=== PATIENT | female | born 1995 ===

== ENCOUNTER 2017-03-03 15:15 | Emergency (ER) | payer OTHER ==
[2017-03-03 15:18] VITALS: BP 134/67; PULSE 90; RESP 18; TEMP 99.9; O2SAT 100
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
--- NOTE | 2017-03-03 16:12 | RAD ---
PROCEDURE: Right Hand Radiographs. HISTORY: hand injury COMPARISON: None. FINDINGS: BONES: Normal. No fracture. JOINTS: Normal. No osteoarthritic changes. SOFT TISSUES: Normal. OTHER FINDINGS: None. IMPRESSION: No evidence of acute displaced fracture nor dislocation. If symptoms persist or occult fracture suspected clinically recommend repeat radiographs in 5-10 days as most fractures should become radiographically evident this timeframe.
--- NOTE | 2017-03-03 17:34 | RAD ---
PROCEDURE: Right Wrist Radiographs. HISTORY: wrist pain COMPARISON: Correlation made with concurrent radiographs right hand FINDINGS: BONES: Current study reveals no definitive radiographic evidence of acute displaced fracture nor dislocation. Osseous structures intact. JOINTS: Joint spaces preserved. No dislocation. SOFT TISSUES: Soft tissues grossly unremarkable. There are no radiopaque foreign bodies. OTHER FINDINGS: None. IMPRESSION: No definitive radiographic evidence of acute displaced fracture nor dislocation. If symptoms persist or occult fracture suspected clinically recommend repeat radiographs in 5-10 days as most fractures should become radiographically evident in this timeframe.
== END 2017-03-03 16:57 | disposition home or self-care (01) ==
LOC: H.ER 15:15
DX: S69.91XA Unspecified injury of right wrist, hand and finger(s), initial encounter (principal); Y04.0XXA Assault by unarmed brawl or fight, initial encounter; Y92.89 Other specified places as the place of occurrence of the external cause

== ENCOUNTER 2017-08-15 10:21 | Emergency (ER) | payer OTHER ==
[2017-08-15 10:24] VITALS: BMI 32.3
--- NOTE | 2017-08-15 11:36 | ED PDOC ---
HPI: Abdomen Time Seen by Provider: 08/15/17 10:25 Chief Complaint (Nursing): Abdominal Pain Chief Complaint (Provider): Abdominal Pain History Per: Patient History/Exam Limitations: no limitations Additional Complaint(s): Raquel is a 22 y/o female with no past medical problems who presents to the ED complaining of abdominal pain in midepigastric area. Patient admits to vomiting yesterday which she describes as being acidic. 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 - Surgical History Surgical History: No Surg Hx - Family History Family History: States: Unknown Family Hx - Home Medications Home Medications: Ambulatory Orders Medication Instructions Recorded Ibuprofen [Motrin] 600 mg PO Q6H PRN #20 tab 06/28/16 Naproxen [Naprosyn Tab] 375 mg PO Q8 PRN #21 tab 03/03/17 Albuterol HFA [Ventolin HFA 90 2 puff IH [id number] PRN #60 puff 07/03/17 mcg/actuation (8 g)] Azithromycin [Zithromax] 250 mg PO DAILY #6 tab 07/03/17 Benzonatate [Tessalon Perle] 100 mg PO Q8 PRN #30 capsule 07/03/17 Famotidine [Pepcid] 20 mg PO BID PRN #10 tab 08/15/17 - Allergies Allergies/Adverse Reactions: Allergies Allergy/AdvReac Type Severity Reaction Status Date / Time No Known Allergies Allergy Verified 05/13/16 16:27 Review of Systems ROS Statement: Except As Marked, All Systems Reviewed And Found Negative Gastrointestinal: Positive for: Vomiting, Abdominal Pain Physical Exam - Reviewed Nursing Documentation Reviewed: Yes Vital Signs Reviewed: Yes - Physical Exam Appears: Positive for: Non-toxic, No Acute Distress Skin: Positive for: Normal Color, Warm, Dry Eye Exam: Positive for: Normal appearance Neck: Positive for: Normal Cardiovascular/Chest: Positive for: Regular Rate, Rhythm Respiratory: Positive for: Normal Breath Sounds. Negative for: Respiratory Distress Gastrointestinal/Abdominal: Positive for: Normal Exam, Bowel Sounds, Soft, Tenderness (umbilical) Extremity: Positive for: Normal ROM Neurologic/Psych: Positive for: Alert, Oriented. Negative for: Motor/Sensory Deficits - Laboratory Results Result Diagrams: 08/15/17 11:58 12 11:58 - ECG O2 Sat by Pulse Oximetry: 99 (RA) Pulse Ox Interpretation: Normal Medical Decision Making Medical Decision Making: Time: 11:20 Initial Impression: abdominal pain Initial Plan: --Beta-HCG --CMP --Lipase --CBC --Pepcid --Zofran Time: 2:11 --Labs were reviewed and negative --Patient reports feeling better. nontender abdomen. She is tolerating PO --Patient is stable for discharge home Scribe Attestation: Documented by Naveen Palmer, acting as a scribe for Santhosh Recio MD Provider Scribe Attestation: All medical record entries made by the Scribe were at my direction and personally dictated by me. I have reviewed the chart and agree that the record accurately reflects my personal performance of the history, physical exam, medical decision making, and the department course for this patient. I have also personally directed, reviewed, and agree with the discharge instructions and disposition. Disposition - Clinical Impression Clinical Impression: Gastritis - Patient ED Disposition Is Patient to be Admitted: No - Disposition Referrals: Ludwig Antonio MD [Staff Provider] - Disposition: Routine/Home Disposition Time: 01:11 Condition: IMPROVED Additional Instructions: follow up with your primary doctor in 1-2 days return to the ED with any worsening or concerning symptoms Prescriptions: Famotidine [Pepcid] 20 mg PO BID PRN #10 tab PRN Reason: Heartburn Instructions: Gastritis (ED) Forms: [employer] (Ugandan)
[2017-08-15] MEDS ORDERED: Sodium Chloride 0.9% 1,000 ML IV STA (11:42)
[2017-08-15 12:03] LABS: BASO % 0.2 % (0.0-2.0); EOS # 0.1 K/uL (0.0-0.7); HEMATOCRIT 37.6 % (34.0-47.0); LYMPH # 1.8 K/uL (1.0-4.3); LYMPH % 18.3 % (20.0-40.0); MEAN CELL VOLUME 88.2 fl (81.0-99.0); MEAN CORPUSCULAR HEMOGLOBIN 29.6 pg (27.0-31.0); MEAN CORPUSCULAR HGB CONC 33.5 g/dL (33.0-37.0); MEAN PLATELET VOLUME 10.9 fl (7.2-11.7); MONO # 0.7 K/uL (0.0-0.8); MONO % 7.5 % (0.0-10.0); NEUT # 7.1 K/uL (1.8-7.0); NRBC % 0.2 % (0.0-0.0); RED CELL DISTRIBUTION WIDTH 13.9 % (11.5-14.5); WHITE BLOOD COUNT 9.7 K/uL (4.8-10.8)
[2017-08-15 12:13] LABS: ALB/GLOB RATIO 1.3 (1.0-2.1); ALKALINE PHOSPHATASE 59 U/L (38-126); ALT/SGPT 56 U/L (9-52); AST/SGOT 23 U/L (14-36); BILIRUBIN,TOTAL 0.4 mg/dl (0.2-1.3); BLOOD UREA NITROGEN 12 mg/dl (7-17); CALCIUM 8.1 mg/dL (8.4-10.2); CARBON DIOXIDE 23 mmol/L (22-30); CHLORIDE 105 mmol/L (98-107); GFR AFRICAN-AMERICAN > 60; GLUCOSE,RANDOM 91 mg/dL (65-105); LIPASE 50 U/L (23-300); POTASSIUM 3.5 MMOL/L (3.6-5.0); SODIUM 139 mmol/l (132-148); TOTAL PROTEIN 7.3 G/DL (6.3-8.2)
[2017-08-15 14:42] VITALS: BP 126/78; PULSE 78; RESP 17; TEMP 97; O2SAT 98
== END 2017-08-15 14:42 | disposition home or self-care (01) ==
LOC: H.ER 10:21
DX: K29.70 Gastritis, unspecified, without bleeding (principal)
CPT/HCPCS: 80053; 81025; 83690; 84702; 85025; 96374; 99282; J2405; J7040

== ENCOUNTER 2018-01-30 11:05 | Observation (INO) | payer SELFPAY ==
[2018-01-30 11:06] VITALS: BMI 32.3
--- NOTE | 2018-01-30 11:48 | ED PDOC ---
HPI: Female Pain Time Seen by Provider: 01/30/18 11:46 Chief Complaint (Nursing): Female Genitourinary Chief Complaint (Provider): abd pain History Per: Patient (22 y/o female sent for evaluation from [facility] clinic. Patient states she was diagnosed with PID and sent to ED for evaluation. Patient is approx 6 week gestation and notes moderate crampy pain lower abdominal region. Denies any dysuria.) Past Medical History Reviewed: Historical Data, Nursing Documentation, Vital Signs Vital Signs: Last Vital Signs Temp 98.0 F 01/30/18 11:28 Pulse 83 01/30/18 11:28 Resp 18 01/30/18 11:28 BP 127/74 01/30/18 11:28 Pulse Ox 99 01/30/18 11:28 - Medical History PMH: Migraine (dx 2 years [employer]), Sexually Transmitted Disease Denies: Chronic Kidney Disease, Seizures - Family History Family History: States: Unknown Family Hx - Home Medications Home Medications: Ambulatory Orders Medication Instructions Recorded No Known Home Med 01/30/18 - Allergies Allergies/Adverse Reactions: Allergies Allergy/AdvReac Type Severity Reaction Status Date / Time No Known Allergies Allergy Verified 05/13/16 16:27 Review of Systems ROS Statement: Except As Marked, All Systems Reviewed And Found Negative Physical Exam - Reviewed Nursing Documentation Reviewed: Yes Vital Signs Reviewed: Yes - Physical Exam Appears: Positive for: Well, Non-toxic, No Acute Distress Head Exam: Positive for: ATRAUMATIC, NORMAL INSPECTION, NORMOCEPHALIC Skin: Positive for: Normal Color, Warm, DRY Eye Exam: Positive for: EOMI, Normal appearance, PERRL ENT: Positive for: Normal ENT Inspection Neck: Positive for: Normal, Painless ROM Cardiovascular/Chest: Positive for: Regular Rate, Rhythm Respiratory: Positive for: CNT, Normal Breath Sounds Gastrointestinal/Abdominal: Positive for: Normal Exam, Soft Back: Positive for: Normal Inspection Extremity: Positive for: Normal ROM Neurologic/Psych: Positive for: Alert, Oriented - Laboratory Results Result Diagrams: 01/30/18 12:05 01/30/18 12:05 - ECG O2 Sat by Pulse Oximetry: 99 - Progress ED Course And Treament: IMPRESSION: Small cystic focus in endometrial cavity with no pole or yolk sac visible reflecting early viable IUP versus failure . Likely corpus luteum cyst right ovary 2.8 cm. Alternatively, this may represent a hemorrhagic cyst or endometrioma. Serial beta HCG analysis is advised as well as one-week follow-up transvaginal pelvic ultrasound examination. ZITHROMAX 1 GM PO (WILL REPEAT IN 1 WEEK) CEFITIN 2 GM IV FIST DOSE D/W FAMILY MED RESIDENT Disposition - Clinical Impression Clinical Impression: Abdominal pain affecting , PID (pelvic inflammatory disease) - Patient ED Disposition Is Patient to be Admitted: Yes - Disposition Disposition Time: 13:36 Condition: FAIR
[2018-01-30] MEDS ORDERED: cefOXitin 2 GM in Sodium Chloride 0.9% 100 ML IVPB ONE (12:10)
[2018-01-30 12:19] LABS: BASO # 0.1 K/uL (0.0-0.2); BASO % 0.8 % (0.0-2.0); EOS # 0.1 K/uL (0.0-0.7); HEMOGLOBIN 12.9 g/dL (12.0-16.0); LYMPH # 2.5 K/uL (1.0-4.3); LYMPH % 24.4 % (20.0-40.0); MEAN CELL VOLUME 87.4 fl (81.0-99.0); MEAN CORPUSCULAR HEMOGLOBIN 30.1 pg (27.0-31.0); MEAN CORPUSCULAR HGB CONC 34.5 g/dL (33.0-37.0); MEAN PLATELET VOLUME 10.3 fl (7.2-11.7); MONO # 0.7 K/uL (0.0-0.8); MONO % 6.5 % (0.0-10.0); NEUT # 6.9 K/uL (1.8-7.0); NEUT % 67.3 % (50.0-75.0); NRBC % 0.1 % (0.0-0.0); RBC 4.28 Mil/uL (3.80-5.20); WHITE BLOOD COUNT 10.3 K/uL (4.8-10.8)
[2018-01-30] MEDS ORDERED: Azithromycin 500 MG IV IVPB ONE (12:20)
[2018-01-30 12:24] LABS: SQUAMOUS EPITHIAL 1 /hpf (0-5); URINE BACTERIA RARE (<OCC); URINE BILIRUBIN NEGATIVE (NEGATIVE); URINE BLOOD SMALL (NEGATIVE); URINE CLARITY CLEAR (Clear); URINE COLOR STRAW (YELLOW); URINE GLUCOSE (UA) NEG (Normal); URINE LEUKOCYTE ESTERASE NEG Leu/uL (Negative); URINE PROTEIN NEGATIVE (NEGATIVE); URINE UROBILINOGEN 0.2-1.0 mg/dL (0.2-1.0)
[2018-01-30 12:31] LABS: BLOOD UREA NITROGEN 7 mg/dl (7-17); CALCIUM 8.9 mg/dL (8.4-10.2); GFR AFRICAN-AMERICAN > 60; GFR NON-AFRICAN AMERICAN > 60
--- NOTE | 2018-01-30 13:12 | US ---
HISTORY: abd pain in ; last menstrual appears reported 01/01/2018. COMPARISON: None available. TECHNIQUE: Transvaginal pelvic ultrasound was performed in transverse and in longitudinal projections including color and spectral Doppler analysis. FINDINGS: UTERUS: Uterus is anteverted measuring 7.6 x 5.7 x 4.4 cm with a small anechoic focus within the endometrial cavity at the upper fundus level measuring 0.39 cm. This is a nonspecific pattern may not represent a gestation. This may represent an early IUP less than 5-6 weeks. No pole or yolk sac identified. Decidual reaction appears faint but non-focal. CERVIX: No cervical abnormality identified. RIGHT OVARY: Measures 4.6 x 3.3 x 3.9 cm. Complex corpus luteum cyst 2.8 x 2.8 x 2.2 cm. Alternately, this may represent a the endometrioma or hemorrhagic cyst given its lace-like internal echo. Normal internal blood flow with no evidence to suggest torsion. LEFT OVARY: Measures 3.4 x 2.3 x 2.1 cm. No solid mass. Normal flow. FREE FLUID: No significant free fluid noted. OTHER FINDINGS: None. IMPRESSION: Small cystic focus in endometrial cavity with no pole or yolk sac visible reflecting early viable IUP versus failure . Likely corpus luteum cyst right ovary 2.8 cm. Alternatively, this may represent a hemorrhagic cyst or endometrioma. Serial beta HCG analysis is advised as well as one-week follow-up transvaginal pelvic ultrasound examination.
--- NOTE | 2018-01-30 15:07 | CP.PCM.HP ---
History of Present Illness - History of Present Illness History of Present Illness: 22 year old female with PMHx significant for chlamydia presented to ED via PCP due to suspected PID. Patient states for the last 4 days has been with worsening lower abdominal pain, 7/10, L>R. Patient also states occasionally chills. Patient was seen in office by PCP, noted to have white/creamy discharge with pelvic pain with bimanual exam and tenderness to palpation of lower abdomen. Patient states LMP on December 27 to January 01, usually irregular in duration. Patient states unplanned with boyfriend. Denies vaginal lesions/itchiness. Patient states chlamydia last diagnosed in June 2016 when she had a spontaneous at 16 weeks gestation. Patient denies dysuria, hematuria, polyuria, diarrhea, constipation, brbpr, melena, nausea, vomiting, chest pain, or palpitations. Patient admits to occasionally having palpitations in the past but not recently. PMD: [facility] PMHx: Chlamydia 2015 Allergies: NKDA Meds: None (found out yesterday, did not start PNV) PSHx: None Family Hx: Mother with brain cancer, Father with HTN Social Hx: Smoker, 3/4cigs/month since 20yo, etoh on weekends, last drink 2 weeks ago, denies illicit drus ED course: Stable vitals, afebrile Labs: unremarkable, no leukocytosis, BHCG 1029 TVUS: Small cystic focus in endometrial cavity with no pole or yolk sac visible reflecting early viable IUP versus failure . Likely corpus luteum cyst right ovary 2.8 cm. Alternatively, this may represent a hemorrhagic cyst or endometrioma. Serial beta HCG analysis is advised as well as one-week follow-up transvaginal pelvic ultrasound examination. 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) Hx Seizures: No - RENAL Hx Chronic Kidney Disease: No - ENDOCRINE/METABOLIC Hx Endocrine Disorders: No - HEMATOLOGICAL/ONCOLOGICAL Hx Blood Disorders: No - MUSCULOSKELETAL/RHEUMATOLOGICAL Hx Musculoskeletal Disorders: No - GASTROINTESTINAL Hx Gastrointestinal Disorders: Yes (fatty liver) - GENITOURINARY/GYNECOLOGICAL Hx Sexually Transmitted Disorders: Yes - PSYCHIATRIC Hx Psychophysiologic Disorder: No Hx Substance Use: No - SURGICAL HISTORY Hx Surgeries: No - ANESTHESIA Hx Anesthesia: No Meds Allergies/Adverse Reactions: Allergies Allergy/AdvReac Type Severity Reaction Status Date / Time No Known Allergies Allergy Verified 05/13/16 16:27 Physical Exam - Constitutional Appears: Well, Non-toxic, No Acute Distress - Head Exam Head Exam: ATRAUMATIC, NORMAL INSPECTION, NORMOCEPHALIC - Eye Exam Eye Exam: Normal appearance - Neck Exam Neck exam: Positive for: Normal Inspection. Negative for: Lymphadenopathy - Respiratory Exam Respiratory Exam: Clear to Auscultation Bilateral, NORMAL BREATHING PATTERN. absent: Rales, Rhonchi, Wheezes - Cardiovascular Exam Cardiovascular Exam: REGULAR RHYTHM, RRR, +S1, +S2, Systolic Murmur - GI/Abdominal Exam GI & Abdominal Exam: Normal Bowel Sounds, Soft, Tenderness (lower abdomen, L > R ) - Exam External exam: NORMAL EXTERNAL EXAM. absent: Lesions Speculum exam: Vaginal Discharge (scant brown/white). absent: Cervical Discharge, Erythema, Vaginal Bleeding Bimanual exam: Adnexal (tenderness, left), Cervical Motion Tendernes (mild) - Extremities Exam Extremities exam: Positive for: normal inspection. Negative for: calf tenderness, pedal edema - Back Exam Back exam: NORMAL INSPECTION - Neurological Exam Neurological exam: Alert, Oriented x3 - Psychiatric Exam Psychiatric exam: Normal Affect, Normal Mood - Skin Skin Exam: Dry, Intact, Normal Color, Warm Results - Vital Signs Recent Vital Signs: Last Vital Signs Temp 98.0 F 01/30/18 11:28 Pulse 83 01/30/18 11:28 Resp 18 01/30/18 11:28 BP 127/74 01/30/18 11:28 Pulse Ox 99 01/30/18 13:55 - Labs Result Diagrams: 01/30/18 12:05 01/30/18 12:05 Labs: Laboratory Results - last 24 hr 01/30/18 01/30/18 01/30/18 11:56 12:05 12:05 WBC 10.3 RBC 4.28 Hgb 12.9 Hct 37.4 MCV 87.4 MCH 30.1 MCHC 34.5 RDW 13.0 Plt Count 183 MPV 10.3 Neut % (Auto) 67.3 Lymph % (Auto) 24.4 [place] % (Auto) 6.5 Eos % (Auto) 1.0 Baso % (Auto) 0.8 Neut # (Auto) 6.9 Lymph # (Auto) 2.5 [place] # (Auto) 0.7 Eos # (Auto) 0.1 Baso # (Auto) 0.1 Sodium 138 Potassium 3.8 Chloride 105 Carbon Dioxide 25 Anion Gap 12 BUN 7 Creatinine 0.3 L Est GFR ( Amer) > 60 Est GFR (Non-Af Amer) > 60 Random Glucose 98 Calcium 8.9 Beta HCG, Quant Urine Color Straw Urine Clarity Clear Urine pH 6.0 Ur Specific [place] 1.011 Urine Protein Negative Urine Glucose (UA) Neg Urine Ketones Negative Urine Blood Small Urine Nitrate Negative Urine Bilirubin Negative Urine Urobilinogen 0.2-1.0 Ur Leukocyte Esterase Neg Urine RBC (Auto) 1 Urine Microscopic WBC < 1 Ur Squamous Epith Cells 1 Urine Bacteria Rare 01/30/18 12:05 WBC RBC Hgb Hct MCV MCH MCHC RDW Plt Count MPV Neut % (Auto) Lymph % (Auto) [place] % (Auto) Eos % (Auto) Baso % (Auto) Neut # (Auto) Lymph # (Auto) [place] # (Auto) Eos # (Auto) Baso # (Auto) Sodium Potassium Chloride Carbon Dioxide Anion Gap BUN Creatinine Est GFR ( Amer) Est GFR (Non-Af Amer) Random Glucose Calcium Beta HCG, Quant 1029.60 Urine Color Urine Clarity Urine pH Ur Specific [place] Urine Protein Urine Glucose (UA) Urine Ketones Urine Blood Urine Nitrate Urine Bilirubin Urine Urobilinogen Ur Leukocyte Esterase Urine RBC (Auto) Urine Microscopic WBC Ur Squamous Epith Cells Urine Bacteria Assessment & Plan (1) Abdominal pain in Status: Acute (2) Murmur Status: Acute (3) DVT prophylaxis Status: Acute - Assessment and Plan (Free Text) Assessment: 22 year old female with PMHx significant for chlamydia with pelvic pain, chills admitted for possible PID in . GA: 4wks 6days Plan: (1) Abdominal pain in - LMP 12/27/17 - suspected PID? - Cefoxitin 2g q12h - Azithromycin 1000mg x1 in ED, 1 dose in 1 week. - TVUS: Small cystic focus in endometrial cavity with no pole or yolk sac visible reflecting early viable IUP versus failure . Likely corpus luteum cyst right ovary 2.8 cm. Alternatively, this may represent a hemorrhagic cyst or endometrioma. Serial beta HCG analysis is advised as well as one-week follow-up transvaginal pelvic ultrasound examination. - OBGYN consulted, appreciate recommendations - PNV daily - Tylenol PRN for pain - Labs in AM (2) Murmur - Patient states she thinks she has had it before but no follow up - palpitations occasionally, not recently, no other cardiac symptoms at this time - Will obtain Echo to further evaluate (3) DVT prophylaxis - SCDs/ambulation - Date & Time Date: 01/30/18 Time: 16:28
--- NOTE | 2018-01-30 19:28 | CP.PCM.CON ---
History of Present Illness - History of Present Illness History of Present Illness: 22 yo with PMH chlamydia admitted for suspected PID in ; pt has positive test at home. Complains of lower abdominal pain x 4 days , 7/, L>R. Was sent from office where she was described to have pelvic pain with bimanual exam and tenderness to palpation of lower abdomen and scant whitish discharge. In ED, afebrile, stable vital signs, no leukocytosis bHC Transvaginal ultrasound: Small anechoic focus with endometrial cavity at the upper fundus level measuring 0.39 cm. This is a nonspecific pattern, may not represent gestation. This may represent an early IUP less than 5-6 weeks vs failure . No pole or yolk sac identified. Likely corpus luteum cyst right ovary 2.8 cm. Alternatively may be hemorrhagic cyst or endometrioma. In ED received 2gm Cefoxitin x 1, 1g Azithromycin x 1; currently receiving cefoxitin 2gm IVPB Q12 OBGYNhx: Menstruation: 15/irregular/5 days, LMP - had SAB at 16 weeks in 2016 STI: chlamydia in 2016, treated, neg in 2017 Sexually active with one male partner ROS: as per HPI, otherwise negative Review of Systems - Review of Systems All systems: reviewed and no additional remarkable complaints except - Gastrointestinal Gastrointestinal: Abdominal Pain Past Patient History - Past Social History Smoking Status: Current Some Days Smoker Alcohol: Occasional Drugs: Denies - CARDIAC Hx Cardiac Disorders: No - PULMONARY Hx Respiratory Disorders: No - NEUROLOGICAL Hx Migraine: Yes Hx Seizures: No - HEENT Hx HEENT Problems: No - RENAL Hx Chronic Kidney Disease: No - ENDOCRINE/METABOLIC Hx Endocrine Disorders: No - HEMATOLOGICAL/ONCOLOGICAL Hx Blood Disorders: No - INTEGUMENTARY Hx Dermatological Problems: No - MUSCULOSKELETAL/RHEUMATOLOGICAL Hx Musculoskeletal Disorders: No - GASTROINTESTINAL Hx Gastrointestinal Disorders: Yes (fatty liver) - GENITOURINARY/GYNECOLOGICAL Hx Sexually Transmitted Disorders: Yes (chlamydia) - PSYCHIATRIC Hx Psychophysiologic Disorder: No Hx Substance Use: No - SURGICAL HISTORY Hx Surgeries: No - ANESTHESIA Hx Anesthesia: No Meds Allergies/Adverse Reactions: Allergies Allergy/AdvReac Type Severity Reaction Status Date / Time No Known Allergies Allergy Verified 05/13/16 16:27 - Medications Medications: Current Medications Acetaminophen (Tylenol 325mg Tab) 650 mg PO Q6 PRN PRN Reason: Pain, moderate (4-7) Cefoxitin Sodium 2 gm/ Sodium (Chloride) 100 mls @ 100 mls/hr IVPB Q12 JAMAL PRN Reason: Protocol Multivit/Folic Acid/Iron () 1 tab PO DAILY JAMAL Physical Exam - Constitutional Appears: Non-toxic - Head Exam Head Exam: NORMAL INSPECTION - Eye Exam Eye Exam: Normal appearance - ENT Exam ENT Exam: Mucous Membranes Moist - Respiratory Exam Respiratory Exam: Clear to Auscultation Bilateral, NORMAL BREATHING PATTERN - Cardiovascular Exam Cardiovascular Exam: REGULAR RHYTHM - GI/Abdominal Exam GI & Abdominal Exam: Normal Bowel Sounds Additional comments: mild-minimal abdominal tenderness - Extremities Exam Extremities exam: Positive for: normal inspection - Neurological Exam Neurological exam: Oriented x3 Results - Vital Signs Recent Vital Signs: Last Vital Signs Temp 98.3 F 01/30/18 16:25 Pulse 82 01/30/18 16:25 Resp 17 01/30/18 16:26 BP 114/68 01/30/18 16:25 Pulse Ox 97 01/30/18 16:25 - Labs Result Diagrams: 01/30/18 12:05 01/30/18 12:05 Labs: Laboratory Results - last 24 hr 01/30/18 01/30/18 01/30/18 11:56 12:05 12:05 WBC 10.3 RBC 4.28 Hgb 12.9 Hct 37.4 MCV 87.4 MCH 30.1 MCHC 34.5 RDW 13.0 Plt Count 183 MPV 10.3 Neut % (Auto) 67.3 Lymph % (Auto) 24.4 [place] % (Auto) 6.5 Eos % (Auto) 1.0 Baso % (Auto) 0.8 Neut # (Auto) 6.9 Lymph # (Auto) 2.5 [place] # (Auto) 0.7 Eos # (Auto) 0.1 Baso # (Auto) 0.1 Sodium 138 Potassium 3.8 Chloride 105 Carbon Dioxide 25 Anion Gap 12 BUN 7 Creatinine 0.3 L Est GFR ( Amer) > 60 Est GFR (Non-Af Amer) > 60 Random Glucose 98 Calcium 8.9 Beta HCG, Quant Urine Color Straw Urine Clarity Clear Urine pH 6.0 Ur Specific [place] 1.011 Urine Protein Negative Urine Glucose (UA) Neg Urine Ketones Negative Urine Blood Small Urine Nitrate Negative Urine Bilirubin Negative Urine Urobilinogen 0.2-1.0 Ur Leukocyte Esterase Neg Urine RBC (Auto) 1 Urine Microscopic WBC < 1 Ur Squamous Epith Cells 1 Urine Bacteria Rare 01/30/18 12:05 WBC RBC Hgb Hct MCV MCH MCHC RDW Plt Count MPV Neut % (Auto) Lymph % (Auto) [place] % (Auto) Eos % (Auto) Baso % (Auto) Neut # (Auto) Lymph # (Auto) [place] # (Auto) Eos # (Auto) Baso # (Auto) Sodium Potassium Chloride Carbon Dioxide Anion Gap BUN Creatinine Est GFR ( Amer) Est GFR (Non-Af Amer) Random Glucose Calcium Beta HCG, Quant 1029.60 Urine Color Urine Clarity Urine pH Ur Specific [place] Urine Protein Urine Glucose (UA) Urine Ketones Urine Blood Urine Nitrate Urine Bilirubin Urine Urobilinogen Ur Leukocyte Esterase Urine RBC (Auto) Urine Microscopic WBC Ur Squamous Epith Cells Urine Bacteria Assessment & Plan - Assessment and Plan (Free Text) Assessment: Assessment: 22 yo female , hx chamydia in 2016, positive test with nonspecific pattern that may represent early IUP, admitted for possible PID in . Plan: Continue current abx management Recommend 48 hour repeat u/s and CG Pt discussed w/ Dr. Ferrari.
[2018-01-30] MEDS: cefOXitin 2 GM in Sodium Chloride 0.9% 100 ML IVPB SCH ×2 (22:00→22:30)
[2018-01-30] MEDS: Prenatal Multivit/Folic Acid/Iron Tab PO SCH (22:28)
[2018-01-31 06:58] LABS: HEMOGLOBIN 12.7 g/dL (12.0-16.0); MEAN CELL VOLUME 88.4 fl (81.0-99.0); MEAN CORPUSCULAR HEMOGLOBIN 29.6 pg (27.0-31.0); MEAN CORPUSCULAR HGB CONC 33.5 g/dL (33.0-37.0); RBC 4.3 Mil/uL (3.80-5.20); RED CELL DISTRIBUTION WIDTH 13.5 % (11.5-14.5)
[2018-01-31 07:14] LABS: ALB/GLOB RATIO 1.2 (1.0-2.1); ALBUMIN 3.8 g/dL (3.5-5.0); ALT/SGPT 49 U/L (9-52); AST/SGOT 31 U/L (14-36); BLOOD UREA NITROGEN 9 mg/dl (7-17); CALCIUM 8.9 mg/dL (8.4-10.2); GFR AFRICAN-AMERICAN > 60; GFR NON-AFRICAN AMERICAN > 60; HDL CHOLESTEROL 33 MG/DL (30-70)
[2018-01-31 07:16] LABS: LDL CHOLESTEROL 76 mg/dL (0-129)
[2018-01-31] MEDS: Prenatal Multivit/Folic Acid/Iron Tab PO SCH (09:11)
[2018-01-31] MEDS: cefOXitin 2 GM in Sodium Chloride 0.9% 100 ML IVPB SCH ×2 (09:11→22:00)
--- NOTE | 2018-01-31 10:22 | CP.PCM.PN ---
Subjective - Date & Time of Evaluation Date of Evaluation: 01/31/18 Time of Evaluation: 10:20 - Subjective Subjective: Pt reports that her abdominal pain is getting better. Pt is tolerating regular diet. Objective - Vital Signs/Intake and Output Vital Signs (last 24 hours): Temp Pulse Resp BP Pulse Ox 98.2 F 75 18 103/64 98 01/31/18 07:47 01/31/18 07:47 01/31/18 07:47 01/31/18 07:47 01/31/18 07:47 - Medications Medications: Current Medications Acetaminophen (Tylenol 325mg Tab) 650 mg PO Q6 PRN PRN Reason: Pain, moderate (4-7) Cefoxitin Sodium 2 gm/ Sodium (Chloride) 100 mls @ 100 mls/hr IVPB Q12 JAMAL PRN Reason: Protocol Last Admin: 01/31/18 09:11 Dose: 100 mls/hr Multivit/Folic Acid/Iron () 1 tab PO DAILY JAMAL Last Admin: 01/31/18 09:11 Dose: 1 tab - Labs Labs: 01/31/18 06:30 01/31/18 06:30 - Constitutional Appears: Well, Non-toxic - GI/Abdominal Exam GI & Abdominal Exam: Soft Additional comments: Nontender - Extremities Exam Additional comments: Nontender - Psychiatric Exam Psychiatric exam: Normal Affect, Normal Mood Assessment and Plan - Assessment and Plan (Free Text) Assessment: 22 yo w/ PMH chlamydia w/ SAB at 16 weeks admitted w/ abdominal pain, possible PID w/ early 01/30/2018 u/s: small cystic focus in endometrial cavity w/ no FP or YS visible reflecting early viable IUP vs failure 01/30/2018 HCG 1029 Rec f/u HCG and u/s in 48 hours Pt received azithromycin 1 gram PO and is currently on IV cefoxitin q [address] Zamarripa, mac artist who explained to me that she has severe aortic regurgitation by echo He is recommending that she be seen by mac artist prior to discharge home He also recommends that she f/u in cardiology clinic after discharge home
--- NOTE | 2018-01-31 11:09 | CP.PCM.PN ---
Subjective - Date & Time of Evaluation Date of Evaluation: 01/31/18 Time of Evaluation: 11:09 - Subjective Subjective: No acute overnight events. Pt is seen and examined by bedside this AM. Pt was seen sitting up and eating breakfast. Denies pain and discharge this AM. Of note, pt states that she was told she had a murmur a few years ago, does remember if any workup was done. Additionally, pt states that she was seen in women's health clinic 1 week ago for vaginal discharge. She was given vaginal cream to be applied at home. Denies abdominal pain, n/v/d/c, chills and fever. Objective - Vital Signs/Intake and Output Vital Signs (last 24 hours): Temp Pulse Resp BP Pulse Ox 98.2 F 75 18 103/64 98 01/31/18 07:47 01/31/18 07:47 01/31/18 07:47 01/31/18 07:47 01/31/18 07:47 - Medications Medications: Current Medications Acetaminophen (Tylenol 325mg Tab) 650 mg PO Q6 PRN PRN Reason: Pain, moderate (4-7) Cefoxitin Sodium 2 gm/ Sodium (Chloride) 100 mls @ 100 mls/hr IVPB Q12 JAMAL PRN Reason: Protocol Last Admin: 01/31/18 09:11 Dose: 100 mls/hr Multivit/Folic Acid/Iron () 1 tab PO DAILY [facility] Last Admin: 01/31/18 09:11 Dose: 1 tab - Labs Labs: 01/31/18 06:30 01/31/18 06:30 - Constitutional Appears: No Acute Distress - Head Exam Head Exam: ATRAUMATIC, NORMOCEPHALIC - Eye Exam Eye Exam: EOMI, Normal appearance - Respiratory Exam Respiratory Exam: Clear to Ausculation Bilateral, NORMAL BREATHING PATTERN. absent: Wheezes - Cardiovascular Exam Cardiovascular Exam: REGULAR RHYTHM, +S2, Murmur (systolic, loudest in the aortic area) - GI/Abdominal Exam GI & Abdominal Exam: Soft, Normal Bowel Sounds. absent: Tenderness - Extremities Exam Extremities Exam: Full ROM. absent: Calf Tenderness, Pedal Edema - Back Exam Back Exam: NORMAL INSPECTION. absent: CVA tenderness (L), CVA tenderness (R) - Neurological Exam Neurological Exam: Alert, Awake, Oriented x3 - Psychiatric Exam Psychiatric exam: Normal Affect, Normal Mood - Skin Skin Exam: Dry, Intact, Normal Color, Warm Assessment and Plan - Assessment and Plan (Free Text) Assessment: Assessment/Plan: 22 year old (GA 4+wks per LMP) female with PMHx of chlamydia with pelvic pain (2016, treated) admitted for possible PID in , IV abx and workup for heart murmur. Abdominal pain in - PID unlikely, but cannot r/o. Pending blood work and cultures - LMP 12/27/17 - C/W Cefoxitin 2g q12h D2 - Azithromycin 1000mg x1 in ED, 1 dose in 1 week. - TVUS: Small cystic focus in endometrial cavity with no pole or yolk sac visible reflecting early viable IUP versus failure . Likely corpus luteum cyst right ovary 2.8 cm. Alternatively, this may represent a hemorrhagic cyst or endometrioma. Serial beta HCG analysis is advised as well as one-week follow-up transvaginal pelvic ultrasound examination. - OBGYN consulted, appreciate recommendations; Repeat BHCG and U/S in 48 hrs - PNV daily - Tylenol PRN for pain - Labs in AM Murmur - Patient states she thinks she has had it before but does not remember if she had a follow up - palpitations occasionally, not recently, no other cardiac symptoms at this time - Echo appreciated; per [employer] Dr. Del Cid, pt has severe aortic regurg as noted in Echo. Cardiology consult recommended - Cardiology consulted Leukocytosis -of unknown origin, WBC 13 -pt remains afebrile, VS stable -cultures pending, urine culture no growth far. Follow up -monitor vitals DVT prophylaxis - SCDs/ambulation
--- NOTE | 2018-01-31 17:25 | CP.PCM.CON ---
History of Present Illness - History of Present Illness History of Present Illness: CONSULTED FOR SEVERE AR NOTED ON ECHO. PT IS CURRENTLY . THIS IS SECOND , FIRST ENDED IN MISCARRIAGE AT 20 WEEKS. PT WAS TOLD SHE HAD AR DURING 1ST , SHE DID NOT FOLLOWUP FOR EVAL AFTER MISCARRIAGE. DENIES SOB, CP, LH, DIZZINESS, PND, LIAM, ORTHOPNEA. PT DENIES FAM HX OF VALVE DISEASE, DENIES FAM HX OF SCD. Review of Systems - Constitutional Constitutional: As Per HPI. absent: Anorexia, Chills, Daytime Sleepiness, Excessive Sweating, Fatigue, Fever, Frequent Falls, Headache, Increased Appetite , Lethargy, Malaise, Night Sweats, Snoring, Sleep Apnea, Weight Gain, Weight Loss, Weakness, Other - EENT Eyes: As Per HPI. absent: Blind Spots, Blurred Vision, Change in Vision, Decreased Night Vision, Diplopia, Discharge, Dry Eye, Exophthalmos, Floaters, Irritation, Itchy Eyes, Loss of Peripheral Vision, Pain, Photophobia, Requires Corrective Lenses, Sees Flashes, Spots in Vision, Tunnel Vision, Other Visual Disturbances, Loss of Vision, Other Ears: As Per HPI. absent: Decreased Hearing, Ear Discharge, Ear Pain, Tinnitus , Abnormal Hearing, Disequilibrium, Dizziness, Other Nose/Mouth/Throat: As Per HPI. absent: Epistaxis, Nasal Congestion, Nasal Discharge, Nasal Obstruction, Nasal Trauma, Nose Pain, Post Nasal Drip, Sinus Pain, Sinus Pressure, Bleeding Gums, Change in Voice, Dental Pain, Dry Mouth, Dysphagia, Halitosis, Hoarsness, Lip Swelling, Mouth Lesions, Mouth Pain, Odynophagia, Sore Throat, Throat Swelling, Tongue Swelling, Facial Pain, Neck Pain, Neck Mass, Other - Breasts Breasts: As Per HPI. absent: Change in Shape, Mass, Pain, Nipple Discharge, Nipple Inversion, Skin Changes, Swelling, Other - Cardiovascular Cardiovascular: As Per HPI. absent: Acrocyanosis, Chest Pain, Chest Pain at Rest, Chest Pain with Activity, Claudication, Diaphoresis, Dyspnea, Dyspnea on Exertion, Edema, Irregular Heart Rhythm, Pain Radiating to Arm/Neck/Jaw, Leg Edema, Leg Ulcers, Lightheadedness, Orthopnea, Palpitations, Paroxysmal Nocturnal Dyspnea, Pedal Edema, Radiating Pain, Rapid Heart Rate, Slow Heart Rate, Syncope, Other - Respiratory Respiratory: As Per HPI. absent: Cough, Dyspnea, Hemoptysis, Dyspnea on Exertion, Wheezing, Snoring, Stridor, Pain on Inspiration, Chest Congestion, Excessive Mucous Production, Change in Mucous Color, Pain with Coughing, Other - Gastrointestinal Gastrointestinal: As Per HPI. absent: Abdominal Pain, Belching, Bloating, Change in Bowel Habits, Change in Stool Character, Coffee Ground Emesis, Constipation, Cramping, Diarrhea, Dyspepsia, Dysphagia, Early Satiety, Excessive Flatus, Fecal Incontinence, Heartburn, Hematemesis, Hematochezia, Loose Stools, Melena, Nausea, Odynophagia, Temesmus, Vomiting, Other - Genitourinary Genitourinary: As Per HPI. absent: Change in Urinary Stream, Difficulty Urinating, Dysuria, Flank Pain, Hematuria, Pyuria, Nocturia, Urinary Incontinence, Urinary Frequency, Urinary Hesitance, Urinary Urgency, Voiding Freq/Small Amts, Freq UTI, Hx Renal/Bladder Calculi, Hx /Renal Surgery, Bladder Distension, Other - Reproductive: Female Reproductive:Female: As Per HPI. absent: Amenorrhea, Amenorrhea/ Control, Currently Menstual, Cycle <21 Days, Cycle >35 Days, Cycle Variable, Menses 1-7 Days, Menses >/= 8 Days, Menses Variable, Cycle > 4 Weeks Between, No Menses for 6 Months, Heavy Menses, Light Menses, Normal Menses, Spotting Between Cycles , S/P Hysterectomy, Menopausal, Post Menopausal, Premenarche, Abnormal Vaginal Bleeding, Dysmenorrhea, Dyspareunia, Genital Lesions, Genital Pruritis, Pelvic Pain, Prolapse Symptoms, Sexual Dysfunction, Vaginal Discharge, Vaginal Dryness , Vaginal Odor, Vaginal Pruritis, Other - Menstruation Menstruation: As Per HPI. absent: Amenorrhea, Amenorrhea/ Control, Currently Menstual, Cycle <21 Days, Cycle >35 Days, Cycle Variable, Menses 1-7 Days, Menses >/= 8 Days, Menses Variable, Cycle > 4 Weeks Between, No Menses for 6 Months, Heavy Menses, Light Menses, Normal Menses, Spotting Between Cycles , S/P Hysterectomy, Menopausal, Post Menopausal, Premenarche, Abnormal Vaginal Bleeding, Dysmenorrhea, Other - Musculoskeletal Musculoskeletal: As Per HPI. absent: Abnormal Gait, Arthralgias, Atrophy, Back Pain, Deformity, Joint Swelling, Limited Range of Motion, Loss of Height, Muscle Cramps, Muscle Weakness, Myalgias, Neck Pain, Numbness, Radiating Pain into Limb, Stiffness, Tingling, Other - Integumentary Integumentary: As Per HPI. absent: Acne, Alopecia, Bleeding Lesions, Change in Hair, Change in Nails, Change in Pigmentation, Changing Lesions, Dry Skin, Erythema, Furuncle, Hirsutism, Lesions, New Lesions, Non-Healing Lesions, Photosensitivity, Pruritus, Rash, Skin Pain, Skin Ulcer, Sores, Striae, Swelling , Unusual Bruising, Wounds, Jaundice, Other - Neurological Neurological: As Per HPI. absent: Abnormal Gait, Abnormal Hearing, Abnormal Movements, Abnormal Speech, Behavioral Changes, Burning Sensations, Confusion, Convulsions, Disequilibrium, Dizziness, Numbness, Focal Weakness, Frequent Falls , Headaches, Lack of Coordination, Loss of Vision, Memory Loss, Paresthesias, Radicular Pain, Restless Legs, Sensory Deficit, Syncope, Tingling, Tremor, Vertigo, Weakness, Other Visual Disturbances, Other - Psychiatric Psychiatric: As Per HPI. absent: Abnormal Sleep Pattern, Anhedonia, Anxiety, Auditory Hallucinations, Behavioral Changes, Change in Appetite, Change in Libido, Confusion, Depression, Difficulty Concentrating, Hallucinations, Homicidal Ideation, Hopelessness, Irritability, Memory Loss, Mood Swings, Panic Attacks, Paranoia, Suicidal Ideation, Visual Hallucinations, Tactile Hallucinations, Other - Endocrine Endocrine: As Per HPI. absent: Change in Body Appearance, Change in Libido, Cold Intolorance, Deepening of Voice, Excessive Sweating, Fatigue, Flushing, Heat Intolorance, Increase in Ring/Shoe/Hat Size, Palpitations, Polydipsia, Polyphagia, Polyuria, Other - Hematologic/Lymphatic Hematologic: As Per HPI. absent: Easy Bleeding, Easy Bruising, Lymphadenopathy , Other Past Patient History - Infectious Disease Hx of Infectious Diseases: None - Past Social History Smoking Status: Current Some Days Smoker Alcohol: Occasional Drugs: Denies - CARDIAC Hx Cardiac Disorders: No - PULMONARY Hx Respiratory Disorders: No - NEUROLOGICAL Hx Migraine: Yes Hx Seizures: No - HEENT Hx HEENT Problems: No - RENAL Hx Chronic Kidney Disease: No - ENDOCRINE/METABOLIC Hx Endocrine Disorders: No - HEMATOLOGICAL/ONCOLOGICAL Hx Blood Disorders: No - INTEGUMENTARY Hx Dermatological Problems: No - MUSCULOSKELETAL/RHEUMATOLOGICAL Hx Musculoskeletal Disorders: No - GASTROINTESTINAL Hx Gastrointestinal Disorders: Yes (fatty liver) - GENITOURINARY/GYNECOLOGICAL Hx Sexually Transmitted Disorders: Yes (chlamydia) - PSYCHIATRIC Hx Psychophysiologic Disorder: No Hx Substance Use: No - SURGICAL HISTORY Hx Surgeries: No - ANESTHESIA Hx Anesthesia: No Meds Home Medications: Home Medication List Medication Instructions Recorded Confirmed Type Multivit/Folic Acid/I 1 tab PO DAILY tab 02/03/18 Rx [] Allergies/Adverse Reactions: Allergies Allergy/AdvReac Type Severity Reaction Status Date / Time No Known Allergies Allergy Verified 05/13/16 16:27 - Medications Medications: Current Medications Acetaminophen (Tylenol 325mg Tab) 650 mg PO Q6 PRN PRN Reason: Pain, moderate (4-7) Cefoxitin Sodium 2 gm/ Sodium (Chloride) 100 mls @ 100 mls/hr IVPB Q12 JAMAL PRN Reason: Protocol Last Admin: 01/31/18 09:11 Dose: 100 mls/hr Multivit/Folic Acid/Iron () 1 tab PO DAILY [facility] Last Admin: 01/31/18 09:11 Dose: 1 tab Physical Exam - Constitutional Appears: Well - Head Exam Head Exam: ATRAUMATIC, NORMAL INSPECTION, NORMOCEPHALIC - Eye Exam Eye Exam: EOMI, Normal appearance, PERRL Pupil Exam: NORMAL ACCOMODATION, PERRL - ENT Exam ENT Exam: Mucous Membranes Moist, Normal Exam - Neck Exam Neck exam: Positive for: Normal Inspection - Respiratory Exam Respiratory Exam: Clear to Auscultation Bilateral, NORMAL BREATHING PATTERN - Cardiovascular Exam Cardiovascular Exam: Diastolic murmur, REGULAR RHYTHM, +S1, +S2, Systolic Murmur - GI/Abdominal Exam GI & Abdominal Exam: Normal Bowel Sounds, Soft. absent: Tenderness - Rectal Exam Rectal Exam: Deferred - Extremities Exam Extremities exam: Positive for: normal inspection - Back Exam Back exam: NORMAL INSPECTION - Neurological Exam Neurological exam: Alert, CN II-XII Intact, Normal Gait, Oriented x3, Reflexes Normal - Psychiatric Exam Psychiatric exam: Normal Affect, Normal Mood - Skin Skin Exam: Dry, Intact, Normal Color, Warm Results - Vital Signs Recent Vital Signs: Last Vital Signs Temp 98 F 01/31/18 16:20 Pulse 100 H 01/31/18 16:20 Resp 20 01/31/18 16:20 BP 126/75 06/01/18 16:20 Pulse Ox 96 01/31/18 16:20 - Labs Result Diagrams: 02/01/18 06:00 01/31/18 06:30 Labs: Laboratory Results - last 24 hr 01/31/18 01/31/18 01/31/18 06:30 06:30 06:30 WBC 13.0 H RBC 4.30 Hgb 12.7 Hct 38.0 MCV 88.4 MCH 29.6 MCHC 33.5 RDW 13.5 Plt Count 185 Sodium 138 Potassium 3.9 Chloride 105 Carbon Dioxide 24 Anion Gap 13 BUN 9 Creatinine 0.4 L Est GFR ( Amer) > 60 Est GFR (Non-Af Amer) > 60 Random Glucose 95 Hemoglobin A1c 5.3 Calcium 8.9 Total Bilirubin 0.3 AST 31 ALT 49 Alkaline Phosphatase 64 Total Protein 7.1 Albumin 3.8 Globulin 3.3 Albumin/Globulin Ratio 1.2 Triglycerides 117 Cholesterol 136 LDL Cholesterol Direct 76 HDL Cholesterol 33 TSH 3rd Generation 1.50 Assessment & Plan (1) Aortic regurgitation Status: Acute (2) Prior miscarriage with in first trimester, antepartum Status: Acute (3) and not yet delivered in first trimester Status: Acute - Assessment and Plan (Free Text) Plan: PT NEEDS TO HAVE AI EVALUATED AFTER . ETIOLOGY OF AI UNKNOWN, HOWEVER SHOULD CONSIDER EVALUATION FOR SLE. NO FURTHER RECOMMENDATIONS GIVEN CURRENT AND LACK OF SYMPTOMS.
--- NOTE | 2018-01-31 19:45 | CARD ---
APPROVED REPORT EXAM: Two-dimensional and M-mode echocardiogram with Doppler and color Doppler. Other Information Quality : GoodRhythm : NSR INDICATION Murmur 2D DIMENSIONS IVSd0.96 (0.7-1.1cm)Aortic Root (2D)3.15 (2.0-3.7cm) LVDd5.30 (3.9-5.9cm)LVOT Diameter2.68 (1.8-2.4cm) PWd1.03 (0.7-1.1cm)IVSs0.76 (0.8-1.2cm) LVDs5.06 (2.5-4.0cm)FS (%) 4.7 % PWs0.74 (0.8-1.2cm) M-Mode DIMENSIONS Left Atrium (MM)2.81 (2.5-4.0cm)IVSd0.30 (0.7-1.1cm) Aortic Root3.70 (2.2-3.7cm)LVDd5.71 (4.0-5.6cm) Aortic Cusp Exc.2.54 (1.5-2.0cm)PWd0.91 (0.7-1.1cm) IVSs0.99 cmFS (%) 33 % LVDs3.81 (2.0-3.8cm)PWs1.35 cm Aortic Valve AI P 1/2 [id number] Mitral Valve MV E Ippdnedx83.7cm/sMV DECEL [id number] A Yqghznnu22.5cm/s MV [id number]/A ratio1.1MVA (PHT)3.98cm2 TDI Lateral E' Peak V14.91cm/sMedial E' Peak V11.16cm/sE/Lateral E'6.5 E/Medial E'8.7 LEFT VENTRICLE The left ventricle is normal in size. There is normal left ventricular wall thickness. The left ventricular function is normal. The left ventricular ejection fraction is - 60%. There is normal LV segmental wall motion. Transmitral Doppler flow pattern is abnormal. No left ventricle thrombus noted on this study. There is no ventricular septal defect visualized. There is no left ventricular aneurysm. There is no mass noted in the left ventricle. RIGHT VENTRICLE The right ventricle is normal size. There is normal right ventricular wall thickness. The right ventricular systolic function is normal. ATRIA The left atrium is mildly dilated on the 2D study. There is no thrombus suspected in the left atrium. The right atrium size is normal. The interatrial septum is intact with no evidence for an atrial septal defect. AORTIC VALVE The aortic valve is moderately to severely thickened and calcific especially what appears to be the non-coronary cusp. There is severe aortic regurgitation in two jets(a larger superior jet and smaller inferior jet). There is no aortic valvular stenosis. MITRAL VALVE The mitral valve is normal in structure. There is no evidence of mitral valve prolapse. There is no mitral valve stenosis. Mitral regurgitation is trace. TRICUSPID VALVE The tricuspid valve is normal in structure. There is mild tricuspid regurgitation. There is no tricuspid valve prolapse or vegetation. There is no tricuspid valve stenosis. PULMONIC VALVE The pulmonic valve is not well visualized. There is no pulmonic valvular regurgitation. GREAT VESSELS The aortic root is normal in size. The IVC was not well visualized. PERICARDIAL EFFUSION The pericardium appears normal. There is no pleural effusion. <Conclusion> The left ventricle is normal in size and wall thickness. The left ventricular function is normal. The left ventricular ejection fraction is - 60%. The left atrium is mildly dilated on the 2D study. The aortic valve is moderately to severely thickened and calcific especially what appears to be the non-coronary cusp. There is severe aortic regurgitation in two jets(a larger superior jet and smaller inferior jet). The mitral and tricuspid valves are normal. Note: A LAYNE is recommended for further evaluation to assess for a possible aortic valve perforation, a possible vegetation and even possibly an eccentric bicuspid valve. The medical team was informed about this echocardiogram result and formal cardiology evaluation was recommended.
--- NOTE | 2018-02-01 07:35 | CP.PCM.PN ---
<Darwin Nina - Last Filed: 02/01/18 07:40> Subjective - Date & Time of Evaluation Date of Evaluation: 02/01/18 Time of Evaluation: 06:30 - Subjective Subjective: Pt seen and examined at bedside. Denies significant overnight events. Denies abdominal pain, dysuria, vaginal bleed, CP/SOB/N/V/D/C. Pt able to ambulate an tolerate regular diet. Has remained afebrile overnight. Objective - Vital Signs/Intake and Output Vital Signs (last 24 hours): Temp Pulse Resp BP Pulse Ox 98.2 F 87 18 111/64 98 02/01/18 00:48 02/01/18 00:48 02/01/18 00:48 02/01/18 00:48 02/01/18 00:48 - Medications Medications: Current Medications Acetaminophen (Tylenol 325mg Tab) 650 mg PO Q6 PRN PRN Reason: Pain, moderate (4-7) Cefoxitin Sodium 2 gm/ Sodium (Chloride) 100 mls @ 100 mls/hr IVPB Q12 JAMAL PRN Reason: Protocol Last Admin: 01/31/18 22:00 Dose: 100 mls/hr Multivit/Folic Acid/Iron () 1 tab PO DAILY JAMAL Last Admin: 01/31/18 09:11 Dose: 1 tab - Labs Labs: 01/31/18 06:30 01/31/18 06:30 - Constitutional Appears: Well, Non-toxic, No Acute Distress - Head Exam Head Exam: ATRAUMATIC - Eye Exam Eye Exam: EOMI - Neck Exam Neck Exam: Full ROM - Respiratory Exam Respiratory Exam: Clear to Ausculation Bilateral, NORMAL BREATHING PATTERN - Cardiovascular Exam Cardiovascular Exam: REGULAR RHYTHM, +S1, +S2, Murmur - GI/Abdominal Exam GI & Abdominal Exam: Soft, Normal Bowel Sounds. absent: Tenderness - Back Exam Back Exam: absent: CVA tenderness (L), CVA tenderness (R) - Neurological Exam Neurological Exam: Alert, Awake, CN II-XII Intact, Oriented x3 - Psychiatric Exam Psychiatric exam: Normal Affect, Normal Mood - Skin Skin Exam: Dry, Intact, Normal Color, Warm Assessment and Plan - Assessment and Plan (Free Text) Plan: 22 yo F w/ pmhx of chlamydia and SAB at 16 weeks admitted for abdominal pain and possible PID in early IV cefoxitin 2 g q12h vitamins Cardiology: Dr. Macdonald seen and evaluated patient: AI evaluation after 01/30/2018 HCG 1029 f/u HCG and us: Planned for today. f/u GC/C and final bcx Case discussed with OB Attending: Dr. Symone Nina MD Family Medicine PGY1 <Negro Ashby - Last Filed: 02/01/18 18:35> Objective - Vital Signs/Intake and Output Vital Signs (last 24 hours): Temp Pulse Resp BP Pulse Ox 98.6 F 94 H 18 122/78 97 02/01/18 16:29 02/01/18 16:29 02/01/18 16:29 02/01/18 16:29 02/01/18 16:29 - Medications Medications: Current Medications Acetaminophen (Tylenol 325mg Tab) 650 mg PO Q6 PRN PRN Reason: Pain, moderate (4-7) Benzocaine/Menthol (Cepacol Sore Throat) 1 lanie PO Q3 PRN PRN Reason: Sore Throat Cefoxitin Sodium 2 gm/ Sodium (Chloride) 100 mls @ 100 mls/hr IVPB Q12 JAMAL PRN Reason: Protocol Last Admin: 02/01/18 09:36 Dose: 100 mls/hr Multivit/Folic Acid/Iron () 1 tab PO DAILY JAMAL Last Admin: 02/01/18 09:36 Dose: 1 tab - Labs Labs: 02/01/18 06:00 01/31/18 06:30 Attending/Attestation - Attestation I have personally seen and examined this patient.: No I have fully participated in the care of the patient.: Yes I have reviewed all pertinent clinical information, including history, physical exam and plan: Yes
[2018-02-01 08:23] LABS: BASO # 0.1 K/uL (0.0-0.2); BASO % 0.6 % (0.0-2.0); EOS # 0.2 K/uL (0.0-0.7); EOS % 1.5 % (0.0-4.0); HEMOGLOBIN 12.6 g/dL (12.0-16.0); LYMPH # 2.7 K/uL (1.0-4.3); LYMPH % 20.5 % (20.0-40.0); MEAN CELL VOLUME 88.6 fl (81.0-99.0); MEAN CORPUSCULAR HEMOGLOBIN 30.2 pg (27.0-31.0); MEAN PLATELET VOLUME 10.7 fl (7.2-11.7); NEUT % 69.4 % (50.0-75.0); NRBC % 0.2 % (0.0-0.0); RBC 4.19 Mil/uL (3.80-5.20); RED CELL DISTRIBUTION WIDTH 13.5 % (11.5-14.5); WHITE BLOOD COUNT 12.9 K/uL (4.8-10.8)
[2018-02-01] MEDS: Prenatal Multivit/Folic Acid/Iron Tab PO SCH (09:36)
[2018-02-01] MEDS: cefOXitin 2 GM in Sodium Chloride 0.9% 100 ML IVPB SCH ×2 (09:36→21:21)
--- NOTE | 2018-02-01 11:44 | CP.PCM.PN ---
Subjective - Date & Time of Evaluation Date of Evaluation: 02/01/18 Time of Evaluation: 11:41 - Subjective Subjective: No acute overnight events. Pt doing well this AM. States that she has been coughing since last night, non-productive. No longer having any abdominal pain, discharge, n/v/d/c, chills or fevers. Objective - Vital Signs/Intake and Output Vital Signs (last 24 hours): Temp Pulse Resp BP Pulse Ox 97.7 F 89 20 109/65 98 02/01/18 08:53 02/01/18 08:53 02/01/18 08:53 02/01/18 08:53 02/01/18 08:53 - Medications Medications: Current Medications Acetaminophen (Tylenol 325mg Tab) 650 mg PO Q6 PRN PRN Reason: Pain, moderate (4-7) Cefoxitin Sodium 2 gm/ Sodium (Chloride) 100 mls @ 100 mls/hr IVPB Q12 JAMAL PRN Reason: Protocol Last Admin: 02/01/18 09:36 Dose: 100 mls/hr Multivit/Folic Acid/Iron () 1 tab PO DAILY JAMAL Last Admin: 02/01/18 09:36 Dose: 1 tab - Labs Labs: 02/01/18 06:00 01/31/18 06:30 - Constitutional Appears: No Acute Distress - Head Exam Head Exam: ATRAUMATIC, NORMAL INSPECTION - Eye Exam Eye Exam: EOMI, Normal appearance - ENT Exam ENT Exam: Mucous Membranes Moist, Normal Oropharynx - Respiratory Exam Respiratory Exam: Clear to Ausculation Bilateral, NORMAL BREATHING PATTERN. absent: Wheezes - Cardiovascular Exam Cardiovascular Exam: REGULAR RHYTHM, +S1, +S2, Murmur (systolic murmur, loudest in aortic area) - GI/Abdominal Exam GI & Abdominal Exam: Soft, Normal Bowel Sounds. absent: Tenderness - Extremities Exam Extremities Exam: Full ROM, Normal Inspection. absent: Calf Tenderness, Pedal Edema - Back Exam Back Exam: NORMAL INSPECTION. absent: CVA tenderness (L), CVA tenderness (R) - Neurological Exam Neurological Exam: Alert, Awake - Psychiatric Exam Psychiatric exam: Normal Affect, Normal Mood - Skin Skin Exam: Dry, Intact, Normal Color, Warm Assessment and Plan - Assessment and Plan (Free Text) Assessment: Assessment/Plan: 22 year old (GA 4+wks per LMP 12/27/17) female with PMHx of chlamydia with pelvic pain (2016, treated) admitted for possible PID in , IV abx and workup for heart murmur. IV Abx D3 Abdominal pain in - resolved at this time - PID unlikely, but cannot r/o. Pending blood work and cultures - C/W Cefoxitin 2g q12h D3 - s/p Azithromycin 1000mg x1 in ED, 1 dose in 1 week. - TVUS: Small cystic focus in endometrial cavity with no pole or yolk sac visible reflecting early viable IUP versus failure . Likely corpus luteum cyst right ovary 2.8 cm. Alternatively, this may represent a hemorrhagic cyst or endometrioma. Serial beta HCG analysis is advised as well as one-week follow-up transvaginal pelvic ultrasound examination. - OBGYN consulted, appreciate recommendations - repeat BHC up from 1029 on 01/30 - pending transvaginal U/S today - c/w PNV daily - Tylenol PRN for pain Murmur - asymptomatic - hx of murmur in the past, not worked-up in the past - palpitations in the past, no cardiac symptoms at this time - Echo 01/31/18; Aortic valve is moderately to severely thickened and calcified. Severe aortic regurg with two jets. Cardiology consult recommended - Cardiology consulted; Per recs, workup for AI post - will need MFM during Leukocytosis -of unknown origin, WBC 13 -pt remains afebrile, VS stable -blood culture no growth 24 hrs, urine culture no growth final. -monitor vitals DVT prophylaxis - SCDs/ambulation
--- NOTE | 2018-02-01 20:36 | US ---
EXAM: US CLINICAL HISTORY: 22 years old, female; Pain; complicated by abdominal or pelvic pain; Periumbilical; First trimester; Gestational age or lmp: Lmp 10/29/2017; TECHNIQUE: Real-time transabdominal and transvaginal obstetrical ultrasound of the maternal pelvis and a first trimester with image documentation. COMPARISON: US - TRANSVAGINAL 2015-12-26 19:04 FINDINGS: Gestation: Question early intrauterine gestational sac measuring 0.53 cm. No yolk sac or pole clearly visualized at this time. Uterus/cervix: No acute abnormality as visualized. No myometrial mass. Ovaries: Approximately 3 cm complex right ovarian cyst. Bilateral ovarian Doppler flow. Free fluid: No free fluid. IMPRESSION: Question early intrauterine gestational sac measuring 0.53 cm. No yolk sac or pole clearly visualized at this time. Approximately 3 cm complex right ovarian cyst. Correlate clinically. Followup imaging recommended.
[2018-02-01] MEDS: Benzocaine/Menthol (Cepacol) Lozenge PO PRN (23:03)
--- NOTE | 2018-02-02 07:33 | CP.PCM.PN ---
<KayLindsay - Last Filed: 02/02/18 10:22> Subjective - Date & Time of Evaluation Date of Evaluation: 02/02/18 Time of Evaluation: 07:33 - Subjective Subjective: Pt seen and examined at bedside this morning. nO acute overnight events. Denies abdominal pain, dysuria, vaginal bleed, CP/SOB/N/V/D/C. Pt able to ambulate an tolerate regular diet. Has remained afebrile overnight. Objective - Vital Signs/Intake and Output Vital Signs (last 24 hours): Temp Pulse Resp BP Pulse Ox 97.9 F 92 H 18 111/61 98 02/01/18 23:53 02/01/18 23:53 02/01/18 23:53 02/01/18 23:53 02/01/18 23:53 - Medications Medications: Current Medications Acetaminophen (Tylenol 325mg Tab) 650 mg PO Q6 PRN PRN Reason: Pain, moderate (4-7) Benzocaine/Menthol (Cepacol Sore Throat) 1 lanie PO Q3 PRN PRN Reason: Sore Throat Last Admin: 02/01/18 23:03 Dose: 1 lanie Cefoxitin Sodium 2 gm/ Sodium (Chloride) 100 mls @ 100 mls/hr IVPB Q12 JAMAL PRN Reason: Protocol Last Admin: 02/01/18 21:21 Dose: 100 mls/hr Multivit/Folic Acid/Iron () 1 tab PO DAILY JAMAL Last Admin: 02/01/18 09:36 Dose: 1 tab - Labs Labs: 02/01/18 06:00 01/31/18 06:30 - Constitutional Appears: Well, No Acute Distress - Head Exam Head Exam: NORMAL INSPECTION - Respiratory Exam Respiratory Exam: Clear to Ausculation Bilateral, NORMAL BREATHING PATTERN. absent: Wheezes - Cardiovascular Exam Cardiovascular Exam: REGULAR RHYTHM, +S1, +S2 Additional comments: Systolic murmur 3/6 on L sternal border. - GI/Abdominal Exam GI & Abdominal Exam: Soft, Normal Bowel Sounds. absent: Distended, Tenderness - Extremities Exam Extremities Exam: absent: Calf Tenderness - Neurological Exam Neurological Exam: Alert, Awake, CN II-XII Intact, Oriented x3 - Psychiatric Exam Psychiatric exam: Normal Mood - Skin Skin Exam: Dry, Warm Assessment and Plan - Assessment and Plan (Free Text) Assessment: 22 yo F w/ pmhx of chlamydia and SAB at 16 weeks admitted for abdominal pain and possible PID in early . - c/w IV cefoxitin 2 g q12h - vitamins - Cardiology: Dr. Macdonald seen and evaluated patient: AI evaluation after . - HCG 2259 going up from 1029 on admission - Repeat US 02/01/18: Questionable of early , no [place] salc or pole appreciated. Recommends following imaging. - f/u GC/C Case discussed with OB Attending: Dr. Symone Moya PGY1 <Negro Ashby O - Last Filed: 02/02/18 15:32> Objective - Vital Signs/Intake and Output Vital Signs (last 24 hours): Temp Pulse Resp BP Pulse Ox 97.8 F 86 18 114/67 94 L 02/02/18 08:37 02/02/18 08:37 02/02/18 08:37 02/02/18 08:37 02/02/18 08:37 - Medications Medications: Current Medications Acetaminophen (Tylenol 325mg Tab) 650 mg PO Q6 PRN PRN Reason: Pain, moderate (4-7) Benzocaine/Menthol (Cepacol Sore Throat) 1 lanie PO Q3 PRN PRN Reason: Sore Throat Last Admin: 02/02/18 12:57 Dose: 1 lanie Cefoxitin Sodium 2 gm/ Sodium (Chloride) 100 mls @ 100 mls/hr IVPB Q12 JAMAL PRN Reason: Protocol Last Admin: 02/02/18 08:54 Dose: 100 mls/hr Multivit/Folic Acid/Iron () 1 tab PO DAILY JAMAL Last Admin: 02/02/18 08:55 Dose: 1 tab - Labs Labs: 02/01/18 06:00 01/31/18 06:30 Attending/Attestation - Attestation I have personally seen and examined this patient.: No I have fully participated in the care of the patient.: Yes I have reviewed all pertinent clinical information, including history, physical exam and plan: Yes
[2018-02-02] MEDS: cefOXitin 2 GM in Sodium Chloride 0.9% 100 ML IVPB SCH ×2 (08:54→21:44)
[2018-02-02] MEDS: Prenatal Multivit/Folic Acid/Iron Tab PO SCH (08:55)
--- NOTE | 2018-02-02 12:48 | CP.PCM.PN ---
Subjective - Date & Time of Evaluation Date of Evaluation: 02/02/18 Time of Evaluation: 10:40 - Subjective Subjective: Pt seen and examined at bedside this morning. NAEO. Denies abdominal pain, dysuria, vaginal bleed, CP/SOB/N/V/D/C. Pt able to ambulate an tolerate regular diet. VSS Objective - Vital Signs/Intake and Output Vital Signs (last 24 hours): Temp Pulse Resp BP Pulse Ox 97.8 F 86 18 114/67 94 L 02/02/18 08:37 02/02/18 08:37 02/02/18 08:37 02/02/18 08:37 02/02/18 08:37 - Medications Medications: Current Medications Acetaminophen (Tylenol 325mg Tab) 650 mg PO Q6 PRN PRN Reason: Pain, moderate (4-7) Benzocaine/Menthol (Cepacol Sore Throat) 1 lanie PO Q3 PRN PRN Reason: Sore Throat Last Admin: 02/01/18 23:03 Dose: 1 lanie Cefoxitin Sodium 2 gm/ Sodium (Chloride) 100 mls @ 100 mls/hr IVPB Q12 JAMAL PRN Reason: Protocol Last Admin: 02/02/18 08:54 Dose: 100 mls/hr Multivit/Folic Acid/Iron () 1 tab PO DAILY JAMAL Last Admin: 02/02/18 08:55 Dose: 1 tab - Labs Labs: 02/01/18 06:00 01/31/18 06:30 - Constitutional Appears: No Acute Distress - Head Exam Head Exam: ATRAUMATIC - Eye Exam Eye Exam: EOMI Pupil Exam: PERRL - ENT Exam ENT Exam: Mucous Membranes Moist - Neck Exam Neck Exam: Full ROM - Respiratory Exam Respiratory Exam: Clear to Ausculation Bilateral - Cardiovascular Exam Additional comments: Diastolic murmur Grade 2 - GI/Abdominal Exam GI & Abdominal Exam: Soft. absent: Tenderness - Extremities Exam Extremities Exam: Full ROM. absent: Pedal Edema - Neurological Exam Neurological Exam: Alert, Awake, Oriented x3 - Psychiatric Exam Psychiatric exam: Normal Affect, Normal Mood - Skin Skin Exam: Dry, Normal Color, Warm Assessment and Plan - Assessment and Plan (Free Text) Plan: 22 year old (GA 4+wks per LMP 12/27/17) female with PMHx of chlamydia with pelvic pain (2016, treated) admitted for possible PID in , IV abx and workup for heart murmur. IV Abx D3 Abdominal pain in - resolved at this time - PID unlikely, but cannot r/o. Pending blood work and cultures - C/W Cefoxitin 2g q12h D3 - s/p Azithromycin 1000mg x1 in ED, 1 dose in 1 week. - TVUS: Small cystic focus in endometrial cavity with no pole or yolk sac visible reflecting early viable IUP versus failure . Likely corpus luteum cyst right ovary 2.8 cm. Alternatively, this may represent a hemorrhagic cyst or endometrioma. Serial beta HCG analysis is advised as well as one-week follow-up transvaginal pelvic ultrasound examination. - OBGYN consulted, appreciate recommendations - repeat BHC up from 1029 on 01/30 - transvaginal U/S 02/01/19: possible gestational sac visualized - c/w PNV daily - Tylenol PRN for pain Murmur - asymptomatic - hx of murmur in the past, not worked-up in the past - palpitations in the past, no cardiac symptoms at this time - Echo 01/31/18; Aortic valve is moderately to severely thickened and calcified. Severe aortic regurg with two jets. Cardiology consult recommended - Cardiology consulted; Per recs, workup for AI post - will need MFM during Leukocytosis -of unknown origin, WBC 13 -pt remains afebrile, VS stable -blood culture no growth 24 hrs, urine culture no growth final. -monitor vitals DVT prophylaxis - SCDs/ambulation.
[2018-02-02] MEDS: Benzocaine/Menthol (Cepacol) Lozenge PO PRN (12:57)
[2018-02-02 23:29] VITALS: O2SAT 98
--- NOTE | 2018-02-03 07:35 | CP.PCM.PN ---
Subjective - Date & Time of Evaluation Date of Evaluation: 02/03/18 Time of Evaluation: 06:45 - Subjective Subjective: Pt seen and examined at beside this AM, resting comfortably. Denies significant overnight events. Denies: abdominal pain, cp, sob, n/v, dysuria. Reports last bowel movement was yesterday and normal. Pt has remained afebrile overnight and is tolerating PO diet. Objective - Vital Signs/Intake and Output Vital Signs (last 24 hours): Temp Pulse Resp BP Pulse Ox 98.1 F 72 20 109/64 98 02/02/18 23:29 02/02/18 23:29 02/02/18 23:29 02/02/18 23:29 02/02/18 23:29 - Medications Medications: Current Medications Acetaminophen (Tylenol 325mg Tab) 650 mg PO Q6 PRN PRN Reason: Pain, moderate (4-7) Benzocaine/Menthol (Cepacol Sore Throat) 1 lanie PO Q3 PRN PRN Reason: Sore Throat Last Admin: 02/02/18 12:57 Dose: 1 lanie Cefoxitin Sodium 2 gm/ Sodium (Chloride) 100 mls @ 100 mls/hr IVPB Q12 JAMAL PRN Reason: Protocol Last Admin: 02/02/18 21:44 Dose: 100 mls/hr Multivit/Folic Acid/Iron () 1 tab PO DAILY [facility] Last Admin: 02/02/18 08:55 Dose: 1 tab - Labs Labs: 02/01/18 06:00 01/31/18 06:30 - Constitutional Appears: Well, Non-toxic, No Acute Distress - Head Exam Head Exam: ATRAUMATIC - Eye Exam Eye Exam: EOMI, Normal appearance - Neck Exam Neck Exam: Full ROM - Respiratory Exam Respiratory Exam: Clear to Ausculation Bilateral, NORMAL BREATHING PATTERN. absent: Wheezes - Cardiovascular Exam Cardiovascular Exam: REGULAR RHYTHM, +S1, +S2, Murmur - GI/Abdominal Exam GI & Abdominal Exam: Soft, Normal Bowel Sounds. absent: Guarding, Rigid, Tenderness - Neurological Exam Neurological Exam: Alert, Awake, CN II-XII Intact, Oriented x3 - Psychiatric Exam Psychiatric exam: Normal Affect, Normal Mood - Skin Skin Exam: Dry, Intact, Normal Color, Warm Assessment and Plan - Assessment and Plan (Free Text) Assessment: 22 yo F w/ pmhx of chlamydia and SAB at 16 weeks admitted for abdominal pain and possible PID in early . Plan: Abdominal pain in - Resolved - Per medicine team: IV cefoxitin 2 g q12h - Pain control: tylenol prn - vitamins - HC > 2259 > 4482 today - Repeat US 02/01/18: Questionable of early , no yolk sac or pole visible. 3cm complex R ovarian cyst. Recommends following imaging. - Vaginal culture/gram stain: Normal vaginal miroslava; No yeast, strep b or GC - On discharge: pt should follow up with OB and MFM (AI per Cardio via ECHO on ) Case discussed with OB Attending Darwin Nina MD PGY1
[2018-02-03 08:07] VITALS: BP 101/55; PULSE 80; RESP 18; TEMP 98.3
--- NOTE | 2018-02-03 09:29 | CP.PCM.PN ---
Subjective - Date & Time of Evaluation Date of Evaluation: 02/03/18 Time of Evaluation: 09:24 - Subjective Subjective: No acute overnight events. Pt seen and examined by bedside this AM. Pt doing well this morning. Denies dyspnea, n/v/d/c, chills and fever. No vaginal discharge, vaginal bleeding or abdominal pain. Objective - Vital Signs/Intake and Output Vital Signs (last 24 hours): Temp Pulse Resp BP Pulse Ox 98.3 F 80 18 101/55 L 98 02/03/18 08:06 02/03/18 08:06 02/03/18 08:06 02/03/18 08:06 02/03/18 08:06 - Medications Medications: Current Medications Acetaminophen (Tylenol 325mg Tab) 650 mg PO Q6 PRN PRN Reason: Pain, moderate (4-7) Benzocaine/Menthol (Cepacol Sore Throat) 1 lanie PO Q3 PRN PRN Reason: Sore Throat Last Admin: 02/02/18 12:57 Dose: 1 lanie Cefoxitin Sodium 2 gm/ Sodium (Chloride) 100 mls @ 100 mls/hr IVPB Q12 JAMAL PRN Reason: Protocol Last Admin: 02/02/18 21:44 Dose: 100 mls/hr Multivit/Folic Acid/Iron () 1 tab PO DAILY JAMAL Last Admin: 02/02/18 08:55 Dose: 1 tab - Labs Labs: 02/01/18 06:00 01/31/18 06:30 - Constitutional Appears: No Acute Distress - Head Exam Head Exam: ATRAUMATIC, NORMOCEPHALIC - Eye Exam Eye Exam: EOMI, Normal appearance - ENT Exam ENT Exam: Mucous Membranes Moist - Respiratory Exam Respiratory Exam: Clear to Ausculation Bilateral, NORMAL BREATHING PATTERN. absent: Wheezes - Cardiovascular Exam Cardiovascular Exam: REGULAR RHYTHM, +S1, +S2 - GI/Abdominal Exam GI & Abdominal Exam: Soft, Normal Bowel Sounds. absent: Tenderness - Extremities Exam Extremities Exam: Full ROM. absent: Pedal Edema - Back Exam Back Exam: NORMAL INSPECTION. absent: CVA tenderness (L), CVA tenderness (R) - Neurological Exam Neurological Exam: Alert, Awake, Oriented x3 - Psychiatric Exam Psychiatric exam: Normal Affect, Normal Mood - Skin Skin Exam: Dry, Intact, Normal Color, Warm Assessment and Plan - Assessment and Plan (Free Text) Assessment: Assessment/Plan: 22 year old (GA 4+wks per LMP 12/27/17) female with PMHx of chlamydia with pelvic pain (2016, treated) admitted for possible PID in , IV abx and workup for heart murmur. IV Abx D4 Abdominal pain in - resolved - PID unlikely, but cannot r/o. - vaginal culture 01/30; normal vaginal miroslava, no yeast, no strep B, no GC isolated. - pending chlamydia results - C/W Cefoxitin 2g q12h D4 - s/p Azithromycin 1000mg x1 in ED, 1 dose in 1 week. - TVUS 01/30: Small cystic focus in endometrial cavity with no pole or yolk sac visible reflecting early viable IUP versus failure . - OBGYN consulted, appreciate recommendations - repeat [facility] today from 1029 on 01/30 - TVUS 02/01: possible gestational sac visualized - c/w PNV daily - Tylenol PRN for pain Murmur - asymptomatic - hx of murmur in the past, not worked-up in the past - palpitations in the past, no cardiac symptoms at this time - Echo 01/31/18; Aortic valve is moderately to severely thickened and calcified. Severe aortic regurg with two jets. Cardiology consult recommended - Cardiology consulted; Per recs, workup for AI post - will need MFM during Leukocytosis -of unknown origin, WBC 12.9 -pt remains afebrile, VS stable -blood culture no growth 24 hrs, urine culture no growth final. -monitor vitals DVT prophylaxis - SCDs/ambulation.
[2018-02-03] MEDS: cefOXitin 2 GM in Sodium Chloride 0.9% 100 ML IVPB SCH (09:52)
[2018-02-03] MEDS: Prenatal Multivit/Folic Acid/Iron Tab PO SCH (09:53)
--- NOTE | 2018-02-03 12:01 | CP.PCM.DIS ---
Provider - Provider Date of Admission: 02/03/18 07:32 Attending physician: Rina Rodriguez MD Time Spent in preparation of Discharge (in minutes): 20 Hospital Course - Lab Results Lab Results: Micro Results 01/30/18 14:35 Vaginal Gram Stain - Final 01/30/18 14:35 Vaginal Genital Culture - Final 01/30/18 14:41 Blood Blood Culture - Preliminary NO GROWTH AFTER 3 DAYS 01/30/18 11:56 Urine Urine Culture - Final No Growth (<1,000 CFU/ML) Most Recent Lab Values WBC 12.9 K/uL (4.8-10.8) H 02/01/18 06:00 RBC 4.19 Mil/uL (3.80-5.20) 02/01/18 06:00 Hgb 12.6 g/dL (12.0-16.0) 02/01/18 06:00 Hct 37.1 % (34.0-47.0) 02/01/18 06:00 MCV 88.6 fl (81.0-99.0) 02/01/18 06:00 MCH 30.2 pg (27.0-31.0) 02/01/18 06:00 MCHC 34.0 g/dL (33.0-37.0) 02/01/18 06:00 RDW 13.5 % (11.5-14.5) 02/01/18 06:00 Plt Count 195 K/uL (130-400) 02/01/18 06:00 MPV 10.7 fl (7.2-11.7) 02/01/18 06:00 Neut % (Auto) 69.4 % (50.0-75.0) 02/01/18 06:00 Lymph % (Auto) 20.5 % (20.0-40.0) 02/01/18 06:00 [place] % (Auto) 8.0 % (0.0-10.0) 02/01/18 06:00 Eos % (Auto) 1.5 % (0.0-4.0) 02/01/18 06:00 Baso % (Auto) 0.6 % (0.0-2.0) 02/01/18 06:00 Neut # (Auto) 9.0 K/uL (1.8-7.0) H 02/01/18 06:00 Lymph # (Auto) 2.7 K/uL (1.0-4.3) 02/01/18 06:00 [place] # (Auto) 1.0 K/uL (0.0-0.8) H 02/01/18 06:00 Eos # (Auto) 0.2 K/uL (0.0-0.7) 02/01/18 06:00 Baso # (Auto) 0.1 K/uL (0.0-0.2) 02/01/18 06:00 Sodium 138 mmol/l (132-148) 01/31/18 06:30 Potassium 3.9 MMOL/L (3.6-5.0) 01/31/18 06:30 Chloride 105 mmol/L (98-107) 01/31/18 06:30 Carbon Dioxide 24 mmol/L (22-30) 01/31/18 06:30 Anion Gap 13 (10-20) 01/31/18 06:30 BUN 9 mg/dl (7-17) 01/31/18 06:30 Creatinine 0.4 mg/dl (0.7-1.2) L 01/31/18 06:30 Est GFR ( Amer) > 60 01/31/18 06:30 Est GFR (Non-Af Amer) > 60 01/31/18 06:30 Random Glucose 95 mg/dL (65-105) 01/31/18 06:30 Hemoglobin A1c 5.3 % (4.2-6.5) 01/31/18 06:30 Calcium 8.9 mg/dL (8.4-10.2) 01/31/18 06:30 Total Bilirubin 0.3 mg/dl (0.2-1.3) 01/31/18 06:30 AST 31 U/L (14-36) 01/31/18 06:30 ALT 49 U/L (9-52) 01/31/18 06:30 Alkaline Phosphatase 64 U/L (38-126) 01/31/18 06:30 Total Protein 7.1 G/DL (6.3-8.2) 01/31/18 06:30 Albumin 3.8 g/dL (3.5-5.0) 01/31/18 06:30 Globulin 3.3 gm/dL (2.2-3.9) 01/31/18 06:30 Albumin/Globulin Ratio 1.2 (1.0-2.1) 01/31/18 06:30 Triglycerides 117 mg/DL (0-149) 01/31/18 06:30 Cholesterol 136 mg/dL (0-199) 01/31/18 06:30 LDL Cholesterol Direct 76 mg/dL (0-129) 01/31/18 06:30 HDL Cholesterol 33 MG/DL (30-70) 01/31/18 06:30 TSH 3rd Generation 1.50 mIU/ML (0.46-4.68) 01/31/18 06:30 Beta HCG, Quant 4482.30 mIU/mL 02/03/18 05:40 Urine Color Straw (YELLOW) 01/30/18 11:56 Urine Clarity Clear (Clear) 01/30/18 11:56 Urine pH 6.0 (5.0-8.0) 01/30/18 11:56 Ur Specific [place] 1.011 (1.003-1.030) 01/30/18 11:56 Urine Protein Negative mg/dL (NEGATIVE) 01/30/18 11:56 Urine Glucose (UA) Neg mg/dL (Normal) 01/30/18 11:56 Urine Ketones Negative mg/dL (NEGATIVE) 01/30/18 11:56 Urine Blood Small (NEGATIVE) 01/30/18 11:56 Urine Nitrate Negative (NEGATIVE) 01/30/18 11:56 Urine Bilirubin Negative (NEGATIVE) 01/30/18 11:56 Urine Urobilinogen 0.2-1.0 mg/dL (0.2-1.0) 01/30/18 11:56 Ur Leukocyte Esterase Neg [place]/uL (Negative) 01/30/18 11:56 Urine RBC (Auto) 1 /hpf (0-3) 01/30/18 11:56 Urine Microscopic WBC < 1 /hpf (0-5) 01/30/18 11:56 Ur Squamous Epith Cells 1 /hpf (0-5) 01/30/18 11:56 Urine Bacteria Rare (<OCC) 01/30/18 11:56 C.trachomatis RNA (TMA) Not detected (Not Detected) 01/30/18 12:18 N.gonorrhoeae RNA (TMA) Not detected (Not Detected) 01/30/18 12:18 - Hospital Course Hospital Course: 22 year old (GA 5+wks by LMP 12/27/17) female with PMHx of chlamydia with pelvic pain (2016, treated) admitted from [facility] to r/o PID in . Pt has received 4 days of Cefoxitin 2g BID and 1x dose of azithromycin in ED. Seen by CORPORATE DEVELOPMENT INTERN while inpatient, appropriate elevation of bHCG (4482) and TVUS (early , no yolk sac or pole visible). On admission, incidental finding of systolic murmur on physical exam, echo was sig for severe aortic regurg. Cardiology was consulted, and recs include post AI workup. Blood work was neg for gonorrhea and chlamydia, no PID. Pt to be d/c home with follow up in high risk clinic in [facility] on @ 1PM, f/u cardiology clinic with Dr. Back on 05/27/18 9:30AM (for now, until we speak to Cardiology for an apt sooner) and c/w vitamins. Discharge Exam - Head Exam Head Exam: ATRAUMATIC, NORMOCEPHALIC - Eye Exam Eye Exam: EOMI, Normal appearance - ENT Exam ENT Exam: Mucous Membranes Dry - Respiratory Exam Respiratory Exam: NORMAL BREATHING PATTERN - Cardiovascular Exam Cardiovascular Exam: REGULAR RHYTHM, +S1, +S2, Systolic Murmur - GI/Abdominal Exam GI & Abdominal Exam: Normal Bowel Sounds, Soft - Extremities Exam Extremities exam: full ROM, normal inspection - Back Exam Back exam: NORMAL INSPECTION - Neurological Exam Neurological exam: Alert, Normal Gait, Oriented x3 - Psychiatric Exam Psychiatric exam: Normal Affect, Normal Mood - Skin Skin Exam: Dry, Intact, Normal Color, Warm Discharge Plan - Follow Up Plan Condition: FAIR Disposition: HOME/ ROUTINE Patient education suggested?: Yes Instructions: Nutrition Before and During , Morning Sickness (DC) Additional Instructions: see DC summary MFM appt: Dr. Gabo Salinas [facility] Sheri February 18 2018 at 1:30pm Cardiology: Dr. Back on 05/27/18 9:30 (for now, until we speak to Cardiology for an apt sooner) Appointment on saturdayFebruary 07 at 11:20am with Dr. Jimenez at [facility] in [place]. Referrals: [facility] [place] [Outside]
--- NOTE | 2018-02-03 14:45 | CP.PCM.PN ---
Subjective - Date & Time of Evaluation Date of Evaluation: 02/03/18 Time of Evaluation: 14:37 - Subjective Subjective: Patient is a 22 with an intrauterine sac gestation and appropriately rising BHCG, LMP back in Oct, admitted for PID for IV treatment. Patient today denies fever, abdominal pain, vaginal bleeding, vomiting, chest pain, SOB Objective - Vital Signs/Intake and Output Vital Signs (last 24 hours): Temp Pulse Resp BP Pulse Ox 98.3 F 80 18 101/55 L 98 02/03/18 08:06 02/03/18 08:06 02/03/18 08:06 02/03/18 08:06 02/03/18 08:06 - Medications Medications: Current Medications Acetaminophen (Tylenol 325mg Tab) 650 mg PO Q6 PRN PRN Reason: Pain, moderate (4-7) Benzocaine/Menthol (Cepacol Sore Throat) 1 lanie PO Q3 PRN PRN Reason: Sore Throat Last Admin: 02/02/18 12:57 Dose: 1 lanie Cefoxitin Sodium 2 gm/ Sodium (Chloride) 100 mls @ 100 mls/hr IVPB Q12 JAMAL PRN Reason: Protocol Last Admin: 02/03/18 09:52 Dose: 100 mls/hr Multivit/Folic Acid/Iron () 1 tab PO DAILY [facility] Last Admin: 02/03/18 09:53 Dose: 1 tab - Labs Labs: 02/01/18 06:00 01/31/18 06:30 - Constitutional Appears: Well, Non-toxic - Respiratory Exam Respiratory Exam: Clear to Ausculation Bilateral - Cardiovascular Exam Cardiovascular Exam: REGULAR RHYTHM - GI/Abdominal Exam GI & Abdominal Exam: Normal Bowel Sounds - Extremities Exam Extremities Exam: Normal Inspection Assessment and Plan - Assessment and Plan (Free Text) Plan: A/P 1. Patient for discharge today, Blood cultures and cervical cultures negative. Patient continues to remain afebrile with no additional s/s 2. Patient recommended to have transvaginal U/S in about 2 wks to establish viability in OB clinic. If +FHR at that time, then patient can have further follow up with MFM. Otherwise if missed pan operator clinic can further advise management and then patient can see cardiology for Aortic regurgitation evaluation 3. Bleeding precautions given to patient
== END 2018-02-03 15:00 | disposition home or self-care (01) ==
LOC: H.ER 11:05 → H.ERHOLD 13:36 → H.MEDSURG1 16:00 → INTOOBSV 02-03 07:32 → OBSVTOIN 02-03 07:32
PROVIDERS: ADMIT Family Medicine Geriatric Medicine; ATTEND Family Medicine Geriatric Medicine
DX: O34.81 Maternal care for other abnormalities of pelvic organs, first trimester (principal); N83.11 Corpus luteum cyst of right ovary; D72.828 Other elevated white blood cell count; O99.89 Other specified diseases and conditions complicating pregnancy, childbirth and the puerperium; O99.331 Smoking (tobacco) complicating pregnancy, first trimester; F17.210 Nicotine dependence, cigarettes, uncomplicated; Z3A.01 Less than 8 weeks gestation of pregnancy
CPT/HCPCS: 36415; 76817; 80048; 80053; 80061; 81003; 81025; 83036; 84443; 84702; 85025; 85027; 87040; 87070; 87081; 87086; 87491; 87591; 93306; 99284; G0378; J0694

== ENCOUNTER 2018-04-05 14:00 | Emergency (ER) | payer SELFPAY ==
[2018-04-05 14:01] VITALS: BMI 32.3
--- NOTE | 2018-04-05 15:01 | ED PDOC ---
HPI: Female Pain Time Seen by Provider: 04/05/18 14:32 Chief Complaint (Nursing): Female Genitourinary Chief Complaint (Provider): Pelvic pain History Per: Patient History/Exam Limitations: no limitations Onset/Duration Of Symptoms: Days (yesterday) Additional Complaint(s): Pt. with pelvic pain like her period and cramping. Also dysuria, and urgency/ frequency of urination. No vaginal bleeding. Has verduzco dc. Is sexually active with 1 person and no condom. No back pain, dyspnea, chest pain. Is preg. 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), Sexually Transmitted Disease Denies: Chronic Kidney Disease, Seizures - Surgical History Surgical History: No Surg Hx - Family History Family History: States: Unknown Family Hx - Living Arrangements Living Arrangements: With Family - Home Medications Home Medications: Ambulatory Orders Medication Instructions Recorded Multivit/Folic Acid/I 1 tab PO DAILY tab 02/03/18 [] Nitrofurantoin Macrocrystals 100 mg PO BID #10 cap 04/05/18 [Macrobid] - Allergies Allergies/Adverse Reactions: Allergies Allergy/AdvReac Type Severity Reaction Status Date / Time No Known Allergies Allergy Verified 05/13/16 16:27 Review of Systems ROS Statement: Except As Marked, All Systems Reviewed And Found Negative Genitourinary Female: Positive for: Dysuria, Frequency, Vaginal Discharge, Pelvic Pain Physical Exam - Reviewed Nursing Documentation Reviewed: Yes Vital Signs Reviewed: Yes - Physical Exam Appears: Positive for: Non-toxic, No Acute Distress Head Exam: Positive for: ATRAUMATIC, NORMAL INSPECTION, NORMOCEPHALIC Skin: Positive for: Normal Color, Warm, DRY Neck: Positive for: Normal, Painless ROM, Supple Cardiovascular/Chest: Positive for: Regular Rate, Rhythm Respiratory: Positive for: CNT, Normal Breath Sounds Gastrointestinal/Abdominal: Positive for: Soft, Tenderness (mild suprapubic) Back: Positive for: Normal Inspection. Negative for: L CVA Tenderness, R CVA Tenderness Extremity: Positive for: Normal ROM. Negative for: Tenderness Neurologic/Psych: Positive for: Alert, Oriented - Laboratory Results Result Diagrams: 04/05/18 15:52 Interpretation Of Abn Labs: urine wbc - ECG O2 Sat by Pulse Oximetry: 99 Pulse Ox Interpretation: Normal - CT Scan/US US Other Rad Studies (CT/US): Radiology Report Reviewed Other Rad Interpretation: SLIUP - Progress ED Course And Treament: 1721: Stable. AAOx3. Pain free. Tolerated PO. FU with pcp. Disposition - Clinical Impression Clinical Impression: UTI (urinary tract infection), Threatened - Patient ED Disposition Is Patient to be Admitted: No Counseled Patient/Family Regarding: Studies Performed, Diagnosis, Need For Followup, Rx Given - Disposition [facility] - [facility]18 [facility]Outside[facility] - 04/07/18 Disposition: Routine/Home Disposition Time: 17:22 Condition: STABLE Additional Instructions: Return if not better in 3 days. Prescriptions: Nitrofurantoin Macrocrystals [Macrobid] 100 mg PO BID #10 cap Instructions: Urinary Tract Infections in Adults, Threatened Miscarriage Print Language: SAUDI ARABIAN
[2018-04-05 15:39] LABS: SQUAMOUS EPITHIAL 19 /hpf (0-5); URINE BACTERIA RARE (<OCC); URINE BILIRUBIN NEGATIVE (NEGATIVE); URINE BLOOD NEGATIVE (NEGATIVE); URINE CLARITY CLOUDY (Clear); URINE COLOR YELLOW (YELLOW); URINE GLUCOSE (UA) NEG (Normal); URINE LEUKOCYTE ESTERASE MOD Leu/uL (Negative); URINE PROTEIN 100 mg/dL (NEGATIVE); URINE UROBILINOGEN 0.2-1.0 mg/dL (0.2-1.0)
[2018-04-05 16:14] LABS: BASO % 0.2 % (0.0-2.0); EOS # 0.1 K/uL (0.0-0.7); EOS % 0.5 % (0.0-4.0); HEMOGLOBIN 12.6 g/dL (12.0-16.0); LYMPH # 2.7 K/uL (1.0-4.3); LYMPH % 18.7 % (20.0-40.0); MEAN CELL VOLUME 88.7 fl (81.0-99.0); MEAN CORPUSCULAR HEMOGLOBIN 29.6 pg (27.0-31.0); MEAN CORPUSCULAR HGB CONC 33.3 g/dL (33.0-37.0); MEAN PLATELET VOLUME 10.5 fl (7.2-11.7); MONO # 0.8 K/uL (0.0-0.8); MONO % 5.1 % (0.0-10.0); NEUT % 75.5 % (50.0-75.0); RBC 4.25 Mil/uL (3.80-5.20); RED CELL DISTRIBUTION WIDTH 13.6 % (11.5-14.5); WHITE BLOOD COUNT 14.6 K/uL (4.8-10.8)
[2018-04-05 18:00] VITALS: BP 122/61; PULSE 70; RESP 18; TEMP 98; O2SAT 98
--- NOTE | 2018-04-07 11:30 | US ---
Date of service: 04/05/2018 PROCEDURE: Limited ultrasound HISTORY: Pain with COMPARISON: 02/01/2018. TECHNIQUE: Standard protocol for this study/examination. FINDINGS: Variable presentation. Posterior Placenta. No evidence of abruption or previa Gestational age derived from LMP 14 weeks 1 day. MARTIN 10/03/2018.. Gestational age derived from the following biometric parameters 14 weeks 4 days. MARTIN 09/30/2018. Biparietal diameter 2.62 cm Head circumference 9.80 cm Abdominal circumference 8.11 cm Femur length 1.55 cm Estimated weight 100.1 g Calculated cardiac rate 152 beats per min. Closed cervix measuring 4.08 cm IMPRESSION: Fourteen weeks 4 days live intrauterine gestation. Gestational concordance documented. Procedure Completed: 16:54 Preliminary (vRad) Report: Dictated and Authenticated: 17:38 Final Interpretation: 11:25Jordan 2017.
== END 2018-04-05 17:54 | disposition home or self-care (01) ==
LOC: H.ER 14:00
DX: O20.0 Threatened abortion (principal); O23.40 Unspecified infection of urinary tract in pregnancy, unspecified trimester

== ENCOUNTER 2018-06-15 23:09 | Emergency (ER) | payer SELFPAY ==
[2018-06-15 23:09] VITALS: BMI 32.3
[2018-06-15 23:33] VITALS: TEMP 97.5
--- NOTE | 2018-06-16 00:05 | ED PDOC ---
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 States for the past week she has felt anxious over finding out the sex of the baby which she was told was going to be a male originally and found out a week ago that it is now a female. States that when she is at home she feels shortness of breath with palpitations that come and go. She states she was told by a grounds worker that she has a "valve problem" but has been checked and was told that there was no problem with it. She attends a [facility] clinic for this reason. Denies any abdominal pain, vaginal discharge, vaginal bleeding, or any other symptoms. Denies leg swelling, recent long plane/car ride. 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), Sexually Transmitted Disease Denies: Chronic Kidney Disease, Seizures - Family History Family History: States: Unknown Family Hx - Home Medications Home Medications: Ambulatory Orders Medication Instructions Recorded Multivit/Folic Acid/I 1 tab PO DAILY tab 02/03/18 [] Nitrofurantoin Macrocrystals 100 mg PO BID #10 cap 04/05/18 [Macrobid] - Allergies Allergies/Adverse Reactions: Allergies Allergy/AdvReac Type Severity Reaction Status Date / Time No Known Allergies Allergy Verified 05/13/16 16:27 Wells Criteria for PE - Wells Criteria for Pulmonary Embolism Clinical Signs and Symptoms of DVT: No P.E is #1 Diagnosis, or Equally Likely: No Heart Rate >100: No Immobilization at least 3 days;Surgery previous 4 weeks: No Previous, objectively diagnosed PE or DVT: No Hemoptysis: No Malignancy w/treatment within 6 months, or palliative: No Total Score: 0 Review of Systems ROS Statement: Except As Marked, All Systems Reviewed And Found Negative Cardiovascular: Positive for: Palpitations Respiratory: Positive for: Shortness of Breath Psych: Positive for: Anxiety Physical Exam - Reviewed Nursing Documentation Reviewed: Yes Vital Signs Reviewed: Yes - Physical Exam Appears: Positive for: Well, Non-toxic, No Acute Distress Head Exam: Positive for: ATRAUMATIC, NORMAL INSPECTION, NORMOCEPHALIC Skin: Positive for: Normal Color, Warm, DRY Eye Exam: Positive for: EOMI, Normal appearance, PERRL ENT: Positive for: Normal ENT Inspection Neck: Positive for: Normal, Painless ROM Cardiovascular/Chest: Positive for: Regular Rate, Rhythm Respiratory: Positive for: CNT, Normal Breath Sounds Gastrointestinal/Abdominal: Positive for: Normal Exam, Bowel Sounds, Soft, Other (Gravid Uterus). Negative for: Tenderness Back: Positive for: Normal Inspection Extremity: Positive for: Normal ROM Neurologic/Psych: Positive for: Alert, Oriented - Laboratory Results Result Diagrams: 06/15/18 23:58 06/15/18 23:58 - ECG O2 Sat by Pulse Oximetry: 97 Pulse Ox Interpretation: Normal Medical Decision Making Medical Decision MakinPM at 25 weeks presenting with shortness of breath, panic, anxiety --Currently asymptomatic, well appearing, normal vitals, normal EKG --Symptoms do not reflect acute PE, ACS, or valvular issue --Likely related to anxiety state --Will check screening labs --CTA Chest not needed at this time due to unlikelihood of PE diagnosis, low Well's Criteria --Patient provided reassurance, felt better 1250AM --Labwork negative --Patient remains asymptomatic in ED --Advised close followup with OB this week --Advised patient to return to the ER if the symptoms do not resolve, worsen, or any new other concerning symptoms arise Disposition - Clinical Impression Clinical Impression: Anxiety, Palpitations - Patient ED Disposition Is Patient to be Admitted: No - Disposition [facility] [Outside] Disposition: Routine/Home Disposition Time: 00:52 Condition: STABLE Additional Instructions: Por favor, reduzca el estrs en lu gagan miriam lu embarazo. Si contina teniendo dificultad para respirar, palpitaciones o dolor en el pecho, regrese a la naseem de emergencias. De lo contrario, por favor tianna un seguimiento esta semana con lu obstetra. Instructions: Anxiety, Adult (DC), Palpitations Forms: [facility] (Rw[place]an)
[2018-06-16 00:15] LABS: HEMOGLOBIN 11.7 g/dL (12.0-16.0); MEAN CELL VOLUME 88.7 fl (81.0-99.0); MEAN CORPUSCULAR HEMOGLOBIN 29.9 pg (27.0-31.0); MEAN CORPUSCULAR HGB CONC 33.8 g/dL (33.0-37.0); RBC 3.92 Mil/uL (3.80-5.20); RED CELL DISTRIBUTION WIDTH 13.5 % (11.5-14.5); WHITE BLOOD COUNT 13.7 K/uL (4.8-10.8)
[2018-06-16 00:25] LABS: BLOOD UREA NITROGEN 9 mg/dl (7-17); CALCIUM 9.3 mg/dL (8.4-10.2); GFR NON-AFRICAN AMERICAN > 60
[2018-06-16 03:02] VITALS: BP 120/64; PULSE 74; RESP 16; O2SAT 98
== END 2018-06-16 01:35 | disposition home or self-care (01) ==
LOC: H.ER 23:09
DX: F41.9 Anxiety disorder, unspecified (principal); R00.2 Palpitations; Z33.1 Pregnant state, incidental

== ENCOUNTER 2018-06-23 16:41 | Emergency (ER) | payer MEDICAID, SELFPAY ==
[2018-06-23 17:14] VITALS: BMI 27.2
[2018-06-23 18:14] LABS: SQUAMOUS EPITHIAL 3 /hpf (0-5); URINE BILIRUBIN NEGATIVE (NEGATIVE); URINE BLOOD NEGATIVE (NEGATIVE); URINE CLARITY CLOUDY (Clear); URINE COLOR YELLOW (YELLOW); URINE GLUCOSE (UA) NEG (Normal); URINE LEUKOCYTE ESTERASE NEG Leu/uL (Negative); URINE PROTEIN 30 mg/dL (NEGATIVE); URINE UROBILINOGEN 0.2-1.0 mg/dL (0.2-1.0)
--- NOTE | 2018-06-23 21:36 | OBHP ---
Datetime: 06/23/2018 18:11 IP Adm Impression: , intrauterine IP Chief Complaint Other: vaginal discharge and pruritis IP Admit Plan: Observation/Evaluation Admit Comment, IP Provider: 23 yo with IUP @ 25.3 based on MARTIN of 10/03/17 presents with Vagin al pruritus and white discharge for 3 day duration. She denies contractions, vaginal bleeding, and lo ss of fluid per the vagina. She reports good movement. Last sexual activity was 3 months ago. P kamaljit follows at [facility] for high risk because she suffers from Aortic Regurgitation. De nies chest pain, shortness of breath, abdominal pain, nausea, vomiting, fevers, chills or dysuria. ROS: Systems reviewed, all else negative except for mention above in the HPI. Labs: only labs brought by patient was Gc/ Cl: negative. Physical exam: Vitally stable. Patient is resting comforatbly in no acute distress. Heart: S1 and S2 appreciated. No murmurs, gallops or rubs. Lungs: Clear air entry bilaterally. Abdomen: Gravid, soft, nontender to palpation. CVA tenderness negative bilaterally. Speculum exam: Performed by Dr. Ball. White vaginal discharge noted in vagina. Assessment: 23 yo with IUP @ 25.3 based on MARTIN of 10/03/17 presents with Vaginal pruritus an d white discharge x3 days found to have white discharge on exam. Plan: - Continous monitoring - F/U U/A Case Discussed with Dr. Ball --- Kait Milian, PGY1 Scratcher. Addendum by Dr. Ball: I have evaluated the patient independently and I agree with the above Pelvic Type - PN: Adequate Extremities - PN: Normal Abdomen - PN: Normal Back - PN: Normal Breast - PN: Not Done Lungs - PN: Normal Heart - PN: Normal Thyroid - PN: Not Done Neurologic - PN: Not Done HEENT - PN: Not Done General - PN: Normal FHR - Baseline A Provider: 150 EGA AdmitDate IP: 25.3 Vital Signs Provider: Reviewed; Within Normal Limits IP Chief Complaint: Maternal discomfort; Other NICHD Variability Prov Fetus A: Minimal - Undetectable to <5bpm FHR Category Provider Fetus A: Category II NICHD Decel Fetus A IP Provider: None Genitourinary Exam: Normal DTRs - PN: Not Done
[2018-06-23 22:40] VITALS: BP 100/62; PULSE 93; RESP 17; TEMP 98.5; O2SAT 100
== END 2018-06-23 18:37 | disposition home or self-care (01) ==
LOC: H.EROB2 16:41
DX: O26.92 Pregnancy related conditions, unspecified, second trimester (principal); L29.2 Pruritus vulvae; N89.8 Other specified noninflammatory disorders of vagina; Z3A.35 35 weeks gestation of pregnancy

== ENCOUNTER 2018-08-02 15:32 | Emergency (ER) | payer MEDICAID, SELFPAY ==
[2018-08-02 16:03] VITALS: BMI 34.3
[2018-08-02 17:09] LABS: HEMOGLOBIN 11.4 g/dL (12.0-16.0); MEAN CELL VOLUME 88.2 fl (81.0-99.0); MEAN CORPUSCULAR HEMOGLOBIN 29.2 pg (27.0-31.0); MEAN CORPUSCULAR HGB CONC 33.1 g/dL (33.0-37.0); RBC 3.92 Mil/uL (3.80-5.20); RED CELL DISTRIBUTION WIDTH 13.8 % (11.5-14.5); WHITE BLOOD COUNT 10.8 K/uL (4.8-10.8)
[2018-08-02 17:13] LABS: ALB/GLOB RATIO 0.9 (1.0-2.1); ALBUMIN 3.3 g/dL (3.5-5.0); ALT/SGPT 24 U/L (9-52); AST/SGOT 17 U/L (14-36); BLOOD UREA NITROGEN 11 mg/dl (7-17); CALCIUM 9.4 mg/dL (8.4-10.2); GFR NON-AFRICAN AMERICAN > 60
[2018-08-02] MEDS ORDERED: Ciprofloxacin 400mg/200ml D5W 0 MG/0 ML BAG IVPB ONE (17:50)
[2018-08-03 03:23] VITALS: BP 107/56; PULSE 99; RESP 18; TEMP 98.1; O2SAT 100
--- NOTE | 2018-08-03 08:43 | US ---
Date of service: 08/02/2018 HISTORY: RUQ pain COMPARISON: None. TECHNIQUE: Sonographic evaluation of the abdomen. FINDINGS: LIVER: Measures cm. Normal echogenicity of the liver parenchyma. No mass. No intrahepatic bile duct GALLBLADDER: Unremarkable. No gallstones. COMMON BILE DUCT: Measures mm. No stones. No dilatation. PANCREAS: Unremarkable as visualized. No mass. No ductal dilatation. RIGHT KIDNEY: Measures cm. Normal echogenicity. No calculus, mass, or hydronephrosis. LEFT KIDNEY: Measures cm. Normal echogenicity. No calculus, mass, or hydronephrosis. SPLEEN: Normal in size and contour. No mass. AORTA: No aneurysmal dilatation. IVC: Unremarkable. OTHER FINDINGS: None. IMPRESSION: Unremarkable abdominal sonogram.
--- NOTE | 2018-08-03 10:59 | OBHP ---
Datetime: 08/02/2018 16:49 IP Adm Impression: , intrauterine IP Chief Complaint Other: RUQ pain IP Admit Plan: Observation/Evaluation Admit Comment, IP Provider: This is a 23 yo f 32 wk high risk due heart valve abnormalities pre sent to [facility] due to RUQ pain started 19:00 08/01/18. Pt state pain is RUQ that comes and go, persista nt with no change, breathing deeply make it worst. Pt denies n/v/d/c. Pt denies vaginal bleeding or c ontraction. No trauma, falls reported. Allergy:none PMH: heart valve abnormalities Insufficiency"? PSH none OBGYN: one misscariage at 3 mo, no std reported PFH none Social: denies smoke,drink drug use ROS negative except mentioned in HPI Assessment and plan This is a 23 yo f 32 wk high risk due heart valve abnormalities present to [facility] due to RUQ pa in started 19:00 08/01/18. 17:00 Plan CBC CMP Monitory tocometer, vitals US of the abdomen Addendum: I saw and examined patient up presentation. Patient's ultrasound negative. Patient's without compl aints at this time. Plan to discharge patient home with labor precautions. [place] Pelvic Type - PN: Adequate Extremities - PN: Normal Abdomen - PN: Abnormal Back - PN: Normal Breast - PN: Normal Lungs - PN: Normal Heart - PN: Normal Thyroid - PN: Normal Neurologic - PN: Normal HEENT - PN: Normal General - PN: Normal FHR - Baseline A Provider: 145 Comments, ACOG Physical Exam: No acute distress RUQ tenderness upon deep palpation EGA AdmitDate IP: 31.1 Vital Signs Provider: Reviewed; Within Normal Limits IP Chief Complaint: Other NICHD Variability Prov Fetus A: Moderate 6-25bpm Genitourinary Exam: Normal DTRs - PN: Normal
== END 2018-08-02 20:45 | disposition home or self-care (01) ==
LOC: H.EROB2 15:32
DX: O26.93 Pregnancy related conditions, unspecified, third trimester (principal); R10.2 Pelvic and perineal pain; O09.93 Supervision of high risk pregnancy, unspecified, third trimester; Z3A.32 32 weeks gestation of pregnancy

== ENCOUNTER 2018-10-17 21:44 | Emergency (ER) | payer MEDICAID, SELFPAY ==
[2018-10-17 21:45] VITALS: BMI 34.3
[2018-10-17 22:38] VITALS: BP 124/74; PULSE 88; RESP 18; TEMP 97.9; O2SAT 98
--- NOTE | 2018-10-17 23:29 | ED PDOC ---
HPI: Abdomen Time Seen by Provider: 10/17/18 22:45 Chief Complaint (Nursing): Abdominal Pain Chief Complaint (Provider): pain at site, concern for infection History Per: Patient Additional Complaint(s): 23 y/o F with no significant PMH who presents with pinching sensation at C- section site and concern for infection. Patient states that she had a approximately 4 weeks ago and has been using Neosporin and alcohol swabs on s ite. She recently noticed some clear liquid coming from area and possibly noting that the skin was opening so she became concerned. She has also been having an increasing pinching sensation at the incision site. Denies fever, chills, abdominal pain, N/V, diarrhea. Also states that she has been having migraines with visual blurriness but denies this currently. Past Medical History Reviewed: Historical Data, Nursing Documentation, Vital Signs Vital Signs: Last Vital Signs Temp 97.9 F 10/17/18 22:36 Pulse 88 10/17/18 22:36 Resp 18 10/17/18 22:36 BP 124/74 10/17/18 22:36 Pulse Ox 98 10/17/18 22:36 - Medical History PMH: HTN, Hypercholesterolemia, Migraine (dx 2 years [employer] P[employer]ER), Sexually Transmitted Disease Denies: Chronic Kidney Disease, Seizures - Family History Family History: States: Unknown Family Hx - Home Medications Home Medications: Ambulatory Orders Medication Instructions Recorded RX: Multivit/Folic Acid/I 1 tab PO DAILY tab 02/03/18 [] Nitrofurantoin Macrocrystals 100 mg PO BID #10 cap 04/05/18 [Macrobid] - Allergies Allergies/Adverse Reactions: Allergies Allergy/AdvReac Type Severity Reaction Status Date / Time No Known Allergies Allergy Verified 10/17/18 22:35 Review of Systems Constitutional: Negative for: Fever Gastrointestinal: Negative for: Nausea, Vomiting, Abdominal Pain Skin: Negative for: Rash Physical Exam - Reviewed Nursing Documentation Reviewed: Yes Vital Signs Reviewed: Yes - Physical Exam Appears: Positive for: Well Skin: Positive for: Normal Color (horizontal incision healing well, mild moisture. No erythema, edema, purulent drainage noted. No increased warmth or induration noted at site. ) Gastrointestinal/Abdominal: Positive for: Normal Exam Neurologic/Psych: Positive for: Alert, Oriented - ECG O2 Sat by Pulse Oximetry: 98 Medical Decision Making Medical Decision Making: Re-assurance provided that sensation likely due to scar formation. Instructions on wound management including keeping area dry due to it being in a fold of skin. 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 Disposition - Clinical Impression Clinical Impression: Complication of section wound - Patient ED Disposition Is Patient to be Admitted: No - Disposition Disposition: Routine/Home Disposition Time: 00:13 Condition: STABLE Additional Instructions: Keep wound clean and dry, use soap and water. Avoid using alcohol as can dry area too much. Use gauze in area to prevent moisture buildup and continue to use antibiotic ointment. Return to ER if you develop fevers, redness at surgical site, pus drainage from wound or worsening abdominal pain. You can take Tylenol or Ibuprofen for discomfort due to scar formation. F/u with your Airline Reservation Agent as planned on 11/04/18. Avoid exercise or excess activity until cleared by your doctor. Forms: [employer] (Polish) Print Language: GUATEMALAN
== END 2018-10-18 00:15 | disposition home or self-care (01) ==
LOC: H.ER 21:44
DX: G89.18 Other acute postprocedural pain (principal); E78.00 Pure hypercholesterolemia, unspecified; I10 Essential (primary) hypertension

== ENCOUNTER 2018-10-27 21:35 | Emergency (ER) | payer MEDICAID ==
[2018-10-27 21:35] VITALS: BMI 34.3
[2018-10-27] MEDS ORDERED: Sodium Chloride 0.9% 500 ML IV STA (22:31)
[2018-10-27 23:06] LABS: SQUAMOUS EPITHIAL 22 /hpf (0-5); URINE BILIRUBIN NEGATIVE (NEGATIVE); URINE BLOOD NEGATIVE (NEGATIVE); URINE CLARITY CLOUDY (Clear); URINE COLOR YELLOW (YELLOW); URINE GLUCOSE (UA) NEG (NEGATIVE); URINE LEUKOCYTE ESTERASE NEG Leu/uL (Negative); URINE PROTEIN 30 mg/dL (NEGATIVE); URINE UROBILINOGEN 0.2-1.0 mg/dL (0.2-1.0)
[2018-10-27 23:29] LABS: BARBITURATES, UR NEGATIVE (NEGATIVE); BENZODIAZEPINES, UR NEGATIVE (NEGATIVE); OPIATES, UR NEGATIVE (NEGATIVE); PHENCYCLIDINE, UR NEGATIVE (NEGATIVE)
--- NOTE | 2018-10-27 23:32 | ED PDOC ---
HPI: Headache Time Seen by Provider: 10/27/18 21:53 Chief Complaint (Nursing): Headache Chief Complaint (Provider): Headache History Per: Patient History/Exam Limitations: no limitations Onset/Duration Of Symptoms: Days (6x weeks), Worse Since (3x weeks) Current Symptoms Are (Timing): Still Present Severity: Moderate Associated Symptoms: Blurred Vision, Other (dizziness) Additional Complaint(s): 23 year old female with a past medical history of migraines presents to the ED for an evaluation of a headache ongoing for 6x weeks, worsening for the past 3x weeks. Patient states that since the of her child 6x weeks ago, she has had a headache. At the time of delivery, patient was diagnosed with preeclampsia and had a , however the headache only slightly decreased after the c- section, and 3x weeks later, it started to become more severe associated with blurry vision and dizziness. Patient reports taking tylenol with no relief. Although patient has a history of migraines, she reports that she has not had was in 3x years. Patient denies having focal weakness, difficulty with speech or gait, fevers, and chills. Patient has a follow up visit with her OB on 11/04/2018. 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[employer]), Sexually Transmitted Disease Denies: Chronic Kidney Disease, Seizures Other PMH: preeclampsia - Surgical History Surgical History: - Family History Family History: States: Hypertension Other Family History: mother: brain tumor - Social History Current smoker - smoking cessation education provided: No Alcohol: None Drugs: Denies - Home Medications Home Medications: Ambulatory Orders Medication Instructions Recorded RX: Multivit/Folic Acid/I 1 tab PO DAILY tab 02/03/18 [] Nitrofurantoin Macrocrystals 100 mg PO BID #10 cap 04/05/18 [Macrobid] Metoclopramide [Reglan] 1 tab PO TID PRN #25 tab 10/28/18 RX: Acetaminophen [Tylenol Extra 1,000 mg PO Q6 PRN #100 tablet 10/28/18 Strength] - Allergies Allergies/Adverse Reactions: Allergies Allergy/AdvReac Type Severity Reaction Status Date / Time No Known Allergies Allergy Verified 10/17/18 22:35 Review of Systems ROS Statement: Except As Marked, All Systems Reviewed And Found Negative Constitutional: Negative for: Fever, Chills Eyes: Positive for: Other (blurry vision) Neurological: Positive for: Headache, Dizziness. Negative for: Weakness, Change in Speech ((-) difficulty), Other (difficulty with gait) Physical Exam - Reviewed Nursing Documentation Reviewed: Yes Vital Signs Reviewed: Yes - Physical Exam Appears: Positive for: Non-toxic, In Acute Distress (mild painful distress) Head Exam: Positive for: ATRAUMATIC, NORMOCEPHALIC Skin: Positive for: Warm, Dry Eye Exam: Positive for: EOMI, PERRL (PERRLA). Negative for: Other (nystagmus) Neck: Positive for: Painless ROM, Supple Cardiovascular/Chest: Positive for: Regular Rate, Rhythm. Negative for: Murmur Respiratory: Positive for: Normal Breath Sounds. Negative for: Respiratory Distress Gastrointestinal/Abdominal: Positive for: Soft. Negative for: Tenderness Back: Positive for: Normal Inspection. Negative for: Muscle Spasm Extremity: Positive for: Normal ROM. Negative for: Deformity Lymphatic: Negative for: Adenopathy Neurologic/Psych: Positive for: Alert, golf club facer II-XII (intact), Oriented (3x), Other (normal speech). Negative for: Motor/Sensory Deficits - Laboratory Results Result Diagrams: 10/27/18 23:20 10/27/18 23:20 Lab Results: Urine Color Yellow (YELLOW) 10/27/18 22:56 Urine Clarity Cloudy (Clear) 10/27/18 22:56 Urine pH 7.0 (5.0-8.0) 10/27/18 22:56 Ur Specific [place] 1.024 (1.003-1.030) 10/27/18 22:56 Urine Protein 30 mg/dL (NEGATIVE) 10/27/18 22:56 Urine Glucose (UA) Neg mg/dL (NEGATIVE) 10/27/18 22:56 Urine Ketones Negative mg/dL (NEGATIVE) 10/27/18 22:56 Urine Blood Negative (NEGATIVE) 10/27/18 22:56 Urine Nitrate Negative (NEGATIVE) 10/27/18 22:56 Urine Bilirubin Negative (NEGATIVE) 10/27/18 22:56 Urine Urobilinogen 0.2-1.0 mg/dL (0.2-1.0) 10/27/18 22:56 Ur Leukocyte Esterase Neg Raya/uL (Negative) 10/27/18 22:56 Urine RBC (Auto) 3 /hpf (0-3) 10/27/18 22:56 Urine Microscopic WBC 3 /hpf (0-5) 10/27/18 22:56 Ur Squamous Epith Cells 22 /hpf (0-5) H 10/27/18 22:56 - ECG O2 Sat by Pulse Oximetry: 98 (RA) Pulse Ox Interpretation: Normal - CT Scan/US CT head w/o contrast Other Rad Studies (CT/US): Read By Radiologist, Radiology Report Reviewed (see MDM note) Medical Decision Making Medical Decision Makin:53 Initial impression: 23 year old female with a headache. Differential diagnoses include, but are not limited to preeclampsia, migraine headache, dehydration, anemia, and tension headache. Initial plan: * CT head w/o contrast * CMP * drug screen urinary * magenisum * phosphorous * TSH * udip * upreg * CBC w/ differential * urine culture * urinalysis * IV NS 500 ml IV 100 mls/hr * reglan 10 mg IVP * toradol 15 mg IVP * tylenol 325 mg tab 975 mg PO * reevaluation 23:28 CT head read and reviewed by radiologist FINDINGS: BRAIN No acute intraparenchymal hemorrhage. No mass lesion. No CT evidence for acute territorial infarct. No midline shift or extra-axial collections. VENTRICLES: No hydrocephalus. ORBITS: The orbits are unremarkable. SINUSES AND MASTOIDS: The paranasal sinuses and mastoid air cells are clear. BONES: No fracture. SOFT TISSUES: Unremarkable. IMPRESSION: No acute intracranial abnormality. 00:00 Patient is being signed out by me to Manohar Valenzuela MD pending labs and reevaluation Scribe Attestation: Documented byAkiko Luque, acting as a scribe for Philomena Lara MD. Provider Scribe Attestation: All medical record entries made by the Scribe were at my direction and personally dictated by me. I have reviewed the chart and agree that the record accurately reflects my personal performance of the history, physical exam, medical decision making, and the department course for this patient. I have also personally directed, reviewed, and agree with the discharge instructions and disposition. Disposition - Clinical Impression Clinical Impression: Acute headache - Disposition Referrals: [facility] [place] [Outside] ([facility] Disposition: Transfer of Care Disposition Time: 00:00 Condition: IMPROVED Prescriptions: RX: Acetaminophen [Tylenol Extra Strength] 1,000 mg PO Q6 PRN #100 tablet PRN Reason: FEVER OR PAIN Metoclopramide [Reglan] 1 tab PO TID PRN #25 tab PRN Reason: headache or nausea Instructions: Migraine Headache (DC), Acute Headache (ED) Print Language: SURINAMESE
[2018-10-27 23:55] LABS: BASO # 0.1 K/uL (0.0-0.2); BASO % 0.8 % (0.0-2.0); EOS # 0.2 K/uL (0.0-0.7); EOS % 2.2 % (0.0-4.0); HEMOGLOBIN 11.7 g/dL (12.0-16.0); LYMPH # 3.7 K/uL (1.0-4.3); LYMPH % 39.6 % (20.0-40.0); MEAN CORPUSCULAR HEMOGLOBIN 27.8 pg (27.0-31.0); MEAN CORPUSCULAR HGB CONC 32.8 g/dL (33.0-37.0); MEAN PLATELET VOLUME 10.9 fl (7.2-11.7); MONO # 0.6 K/uL (0.0-0.8); MONO % 6.6 % (0.0-10.0); NEUT # 4.8 K/uL (1.8-7.0); NEUT % 50.8 % (50.0-75.0); RBC 4.19 Mil/uL (3.80-5.20); RED CELL DISTRIBUTION WIDTH 14.7 % (11.5-14.5); WHITE BLOOD COUNT 9.4 K/uL (4.8-10.8)
[2018-10-28 00:10] LABS: BLOOD UREA NITROGEN 19 mg/dl (7-17); CALCIUM 9.4 mg/dL (8.4-10.2); GFR NON-AFRICAN AMERICAN > 60
[2018-10-28 00:29] LABS: ALB/GLOB RATIO 1.3 (1.0-2.1); ALBUMIN 4.4 g/dL (3.5-5.0); ALT/SGPT 41 U/L (9-52); AST/SGOT 46 U/L (14-36)
--- NOTE | 2018-10-28 00:29 | ED PDOC ---
- Laboratory Results Result Diagrams: 10/27/18 23:20 10/27/18 23:20 Lab Results: Total Bilirubin 0.4 mg/dl (0.2-1.3) 10/27/18 23:20 Urine Color Yellow (YELLOW) 10/27/18 22:56 Urine Clarity Cloudy (Clear) 10/27/18 22:56 Urine pH 7.0 (5.0-8.0) 10/27/18 22:56 Ur Specific [place] 1.024 (1.003-1.030) 10/27/18 22:56 Urine Protein 30 mg/dL (NEGATIVE) 10/27/18 22:56 Urine Glucose (UA) Neg mg/dL (NEGATIVE) 10/27/18 22:56 Urine Ketones Negative mg/dL (NEGATIVE) 10/27/18 22:56 Urine Blood Negative (NEGATIVE) 10/27/18 22:56 Urine Nitrate Negative (NEGATIVE) 10/27/18 22:56 Urine Bilirubin Negative (NEGATIVE) 10/27/18 22:56 Urine Urobilinogen 0.2-1.0 mg/dL (0.2-1.0) 10/27/18 22:56 Ur Leukocyte Esterase Neg Raya/uL (Negative) 10/27/18 22:56 Urine RBC (Auto) 3 /hpf (0-3) 10/27/18 22:56 Urine Microscopic WBC 3 /hpf (0-5) 10/27/18 22:56 Ur Squamous Epith Cells 22 /hpf (0-5) H 10/27/18 22:56 - ECG O2 Sat by Pulse Oximetry: 99 Medical Decision Making Medical Decision Makin:00 Patient is being signed out to me by Philomena Lara MD pending labs and reevaluation 00:20 Patient has normal LFTs, not concerned for HELPP syndrome Well appearing and stable for outpatient followup Scribe Attestation: Documented Izabela Luque, acting as a scribe for Manohar Valenzuela MD. Provider Scribe Attestation: All medical record entries made by the Scribe were at my direction and personally dictated by me. I have reviewed the chart and agree that the record accurately reflects my personal performance of the history, physical exam, medical decision making, and the department course for this patient. I have also personally directed, reviewed, and agree with the discharge instructions and disposition. Disposition - Clinical Impression Clinical Impression: Acute headache - POA Present On Arrival: None - Disposition Referrals: [facility] [place] [Outside] [facility] Disposition: Routine/Home Disposition Time: 00:20 Condition: IMPROVED Prescriptions: RX: Acetaminophen [Tylenol Extra Strength] 1,000 mg PO Q6 PRN #100 tablet PRN Reason: FEVER OR PAIN Metoclopramide [Reglan] 1 tab PO TID PRN #25 tab PRN Reason: headache or nausea Instructions: Migraine Headache (DC), Acute Headache (ED) Print Language: LIBYAN
[2018-10-28 01:12] VITALS: BP 126/72; PULSE 81; RESP 15; TEMP 98.9
--- NOTE | 2018-10-28 10:57 | CT ---
Date of service: 10/27/2018 PROCEDURE: CT HEAD WITHOUT CONTRAST. HISTORY: headache COMPARISON: 01/13/2016 TECHNIQUE: Axial computed tomography images were obtained through the head/brain without intravenous contrast. Supplemental Coronal and Sagittal projections created and reviewed. Radiation dose: Total exam DLP = 776.53 mGy-cm. This CT exam was performed using one or more of the following dose reduction techniques: Automated exposure control, adjustment of the mA and/or kV according to patient size, and/or use of iterative reconstruction technique. FINDINGS: HEMORRHAGE: No intracranial hemorrhage. BRAIN: No mass effect or edema. No atrophy or chronic microvascular ischemic changes. VENTRICLES: Unremarkable. No hydrocephalus. CALVARIUM: Unremarkable. PARANASAL SINUSES: Unremarkable as visualized. No significant inflammatory changes. MASTOID AIR CELLS: Unremarkable as visualized. No inflammatory changes. OTHER FINDINGS: None. IMPRESSION: No acute intracranial abnormalities. No significant findings to account for the clinical presentation. No significant interval change compared to the prior examination(s). Concordant results (preliminary interpretation) provided by [facility]. Procedure Completed: 23:01. Preliminary Report: Interpreted and electronically signed: 23:28. Final Interpretation: 10:54. October 28, 2018
[2018-10-28 13:30] VITALS: O2SAT 98
== END 2018-10-28 01:12 | disposition home or self-care (01) ==
LOC: H.ER 21:35
DX: R51 Headache (principal); E78.00 Pure hypercholesterolemia, unspecified; I10 Essential (primary) hypertension
CPT/HCPCS: 70450; 80053; 80324; 80345; 80346; 80349; 80353; 80358; 80361; 81003; 81025; 83735; 83992; 84100; 84443; 85025; 87086; 96374; 96375; 99285; J1885; J2765; J7030